=== PATIENT | female | born 1935 | race Caucasian/White ===

== ENCOUNTER 2016-05-07 08:03 | Inpatient (IN) | payer OTHER ==
[2016-04-16 15:14] VITALS: BMI 31.0
--- NOTE | 2016-04-16 15:52 | PAT Medication Instructions ---
Service Date Apr 16, 2016. Current Home Medication List Acetaminophen (Tylenol Arthritis Ext Rel), 1,300 MG PO BID Aspirin (Aspirin Ec), 81 MG PO QAM Calcium Carbonate-Vitamin D (Calcium 500 + D), 1 TAB PO QAM Chlorthalidone (Hygroton *), 12.5 MG PO QAM Cholecalciferol (Vitamin D 1000 Unit), 1,000 INTER.UNIT PO QAM Cholestyramine Powder (Questran Powder Light), 1 DOSE PO QAM Dicyclomine Hcl (Bentyl), 1 CAP PO DAILY PRN for cramping Fluticasone Propionate (Flonase Nasal Armstrong *), 2 SPRAYS FAVIAN DAILY Fluvastatin (Lescol), 40 MG PO QPM Metoprolol Tartrate (Lopressor), 25 MG PO BID Multivitamin (Multivitamin), 1 TAB PO QAM Potassium Ext Rel (Klor-Con), 20 MEQ PO TID Medication Instructions For Your Scheduled Surgery - Hold the following medications the morning of surgery: Multivitamin (Multivitamin), 1 TAB PO QAM Chlorthalidone (Hygroton *), 12.5 MG PO QAM Potassium Ext Rel (Klor-Con), 20 MEQ PO TID Calcium Carbonate-Vitamin D (Calcium 500 + D), 1 TAB PO QAM Cholecalciferol (Vitamin D 1000 Unit), 1,000 INTER.UNIT PO QAM Cholestyramine Powder (Questran Powder Light), 1 DOSE PO QAM Dicyclomine Hcl (Bentyl), 1 CAP PO DAILY PRN for cramping - Take the following medications the morning of surgery with a sip of water OTHERWISE NOTHING TO EAT OR DRINK AFTER MIDNIGHT: Acetaminophen (Tylenol Arthritis Ext Rel), 1,300 MG PO BID (may take if needed up to 4 hours prior to surgery) Aspirin (Aspirin Ec), 81 MG PO QAM Metoprolol Tartrate (Lopressor), 25 MG PO BID Fluticasone Propionate (Flonase Nasal Armstrong *), 2 SPRAYS FAVIAN DAILY - Take the following medications as scheduled the night before surgery: Acetaminophen (Tylenol Arthritis Ext Rel), 1,300 MG PO BID Fluvastatin (Lescol), 40 MG PO QPM Potassium Ext Rel (Klor-Con), 20 MEQ PO TID Dicyclomine Hcl (Bentyl), 1 CAP PO DAILY PRN for cramping Metoprolol Tartrate (Lopressor), 25 MG PO BID If you have any questions please call us at [phone] or [phone] or [phone]
[2016-04-16 16:18] LABS: BASO % 0.2 %; BASO ABS # 0.01 K/uL (0-0.2); COMPLETE YES; EOS % 2.4 %; HEMATOCRIT 36.2 % (37-47); IG% 0.2 %; LYMPH % 32.9 %; LYMPH ABS # 1.38 K/uL (1.2-3.4); MEAN CELL VOLUME 93.1 fL (80-100); MEAN CORPUSCULAR HEMOGLOBIN 31.1 pg (25-34); MEAN CORPUSCULAR HGB CONC 33.4 g/dl (32-36); MEAN PLATELET VOLUME 9.8 fL (7.4-10.4); MONO % 12.4 %; NEUT % 51.9 %; PLATELET COUNT 207 K/uL (130-400); RED BLOOD COUNT 3.89 M/uL (4.2-5.4)
[2016-04-16 16:39] LABS: BUN/CREATININE RATIO 33.9 (10-20); CALCIUM 9.8 mg/dl (8.5-10.1); CREATININE 0.72 mg/dl (0.60-1.20); POTASSIUM 3.7 mmol/L (3.5-5.1)
--- NOTE | 2016-04-29 10:42 | HISTORY & PHYSICAL EXAMINATION ---
DATE OF ADMISSION: 05/07/2016 CHIEF COMPLAINT: Right knee pain. HISTORY OF PRESENT ILLNESS: The patient is an 80-year-old female that presents with right knee pain. She states that the pain occurs constantly and has been getting progressively worse over time. She describes the pain as being dull, achy, consistent pain. She has had no relief with nonsteroidal anti-inflammatories, physical therapy, cortisone injections, and visco injection. She would like to proceed with a right total knee arthroplasty. PAST MEDICAL HISTORY: Significant for hypertension, hypercholesterolemia, osteoarthritis, GERD, hiatal hernia and diverticulitis. PAST SURGICAL HISTORY: Left knee TKA, partial thyroidectomy, hysterectomy, 2 back surgeries, and bladder surgery. SOCIAL HISTORY: She denies alcohol use. She denies smoking or tobacco use. She denies IV drug use. She lives in a 1-story house and she is retired. FAMILY HISTORY: Mother of a heart attack and dad had a stroke. MEDICATIONS: Potassium chloride, fluvastatin, metoprolol tartrate 50 mg, hygroton 25 mg, Questran 4 grams, aspirin 81 mg, Flonase as needed, calcium and vitamin D supplement, multivitamin, Bentyl 10 mg. ALLERGIES: ATORVASTATIN, OMEPRAZOLE, SULFA DRUGS. REVIEW OF SYSTEMS: She denies fevers, chills, headaches, weight loss, double vision, blurry vision, sore throat, hearing loss, tremors, dizziness, numbness or tingling, tired, thirsty, hot and cold intolerance, abdominal pain, nausea, vomiting, diarrhea, chest pain, swelling into the legs or feet, pain or burning with urination, frequency with urination, wheezing, cough, shortness of breath, depression, thoughts to harm herself or harm others, nervousness or anxiousness. She is positive for joint pain, stiffness and swelling of the right knee. OBJECTIVE: GENERAL APPEARANCE: The patient is an 80-year-old female that is sitting, in no acute distress, well dressed, well nourished. She is awake, alert and oriented x3. VITAL SIGNS: She is 4 feet 9 inches, 142 pounds. HEENT: Extraocular movements are intact. PERRLA. Mucosa is moist. No septal deviation. NECK: Supple with no lymphadenopathy, no JVD, no thyromegaly. HEART: She has a holosystolic murmur that is appreciated. LUNGS: Clear to auscultation. No wheezing or rhonchi. ABDOMEN: Soft, nontender, nondistended. Normal bowel sounds. No hepatosplenomegaly. EXTREMITIES: Paying particular attention to the right knee, she is able to extend her knee to 0 degrees actively. She is able to actively flex her knee to 90 degrees. She has medial joint line tenderness as well as lateral joint line tenderness. NEUROLOGIC: Cranial nerves II-XII are intact. Pulses are compared bilaterally and are equal. IMAGING: Four-view x-ray show [id number] of the medial compartment onto the right knee, osteophyte formation on the medial condyle and the medial tibial plateau. IMPRESSION: Severe end-stage osteoarthritis of the right knee. PLAN: The patient is scheduled for a right total knee arthroplasty. She has failed conservative therapies including cortisone injections, visco injections, nonsteroidal anti-inflammatories, and physical therapy. She has noted that the pain decreases her quality of life and makes it difficult to perform activities of daily living. She wishes to proceed with right total knee arthroplasty. Risks and benefits were discussed and included but not limited to blood clot, nerve damage, blood vessel damage, infection, failure to relieve all symptoms, revision surgeries, and anesthesia risks were all discussed with the patient and she wishes to proceed. All questions were answered to her satisfaction. She would like to go to [facility] as a part of her rehab after her surgical procedure. PRUDENCE
[~2016-05-07] VITALS: Ht 144.8 cm; Wt 64.9 kg
[2016-05-07] VITALS (10 sets, daily range): BP systolic 111–174; BP diastolic 60–82; PULSE 63–83; TEMP 36.2–36.8; O2SAT 92–99; Ht 144.8 cm; Wt 64.9 kg
[~2016-05-07 08:03] MED LIST: ACET1TAB84 PO; ACETAMINOPHEN 500 MG TAB PO SCH; ASPI81TA28 PO; BUPIVACAINE 0.5 % 5 MG/1 ML PF 10ML VIAL ONE; CALCTAB65 PO; CEFAZOLIN 1000MG/55 ML D5W 55 ML IV SCH; CHOL100027 PO; CHOL4POW6 PO; CeleBREX 200 MG CAP PO SCH; DEXAMETHASONE 4 MG TAB PO SCH; DICY10CA55 PO; FAMOTIDINE 20 MG TAB PO SCH; FENTANYL CITRATE INJ 50 MCG/1 ML 2 ML VIAL ONE; FLNIN NAE; FLUV1CAP7 PO; GABAPENTIN 300 MG CAP PO SCH; HYG25 PO; LACTATED RINGER'S 1000ML IV SCH; LISI5TAB PO; METO-551 PO; METOCLOPRAMIDE HCL 10 MG TAB PO SCH; MIDAZOLAM HCL 1 MG/ML 2ML VIAL ONE; MULT-506 PO; ONDANSETRON INJ 2 MG/ML 2 ML VIAL ONE; POTA20TA16 PO; PROPOFOL IV EMULSION 10 MG/ML 20 ML VIAL IV ONE; ROPIVACAINE 5MG/ML 30 ML 150 MG, BUPIVACAINE/EPINEPHR 0.5% MPF 30 ML, KETOROLAC TROMETH... INFIL SCH
--- NOTE | 2016-05-07 08:51 | History & Physical Bridge Note ---
H&P Re-Evaluation Bridge Note: I have examined the patient, reviewed the History & Physical and in the interval since the performance of the History & Physical I have noted the following changes of clinical significance: No changes noted
[2016-05-07] MEDS ORDERED: EpHEDrine SULFATE INJ 50 MG/ML AMP IV PRN (09:45)
[2016-05-07] MEDS ORDERED: FENTANYL CITRATE INJ 50 MCG/1 ML 2 ML VIAL IV PRN (09:45)
[2016-05-07] MEDS ORDERED: ATROPINE SULFATE 0.1 MG/ML 5ML SYR IV PRN (09:45)
[2016-05-07] MEDS ORDERED: ONDANSETRON INJ 2 MG/ML 2 ML VIAL IV PRN (09:45)
[2016-05-07] MEDS ORDERED: BACITRACIN 50000 UNIT VIAL ONE (09:46)
[2016-05-07] MEDS ORDERED: POVIDONE-IODINE OP SOLN 30 ML BTL ONE (09:46)
[2016-05-07] MEDS ORDERED: ORTHO JOINT ANESTHETIC ONE (09:46)
--- NOTE | 2016-05-07 12:11 | [facility] Post Operative Brief Note ---
Immediate Operative Summary Operative Date May 07, 2016. Pre-Operative Diagnosis Severe end-stage osteoarthritis of the right knee. Post-Operative Diagnosis Severe end-stage osteoarthritis of the right knee. Procedure(s) Performed Right Total Knee Arthroplasty Surgeon Dr. Sloan Polanco Steward/Stewardess Second Surgeon(s) Vkiash Gan PA-C Estimated Blood Loss 20 Findings above Specimens Specimen A. Right knee bone and tissue Drains 2 hemovac Anesthesia spinal Complication(s) None Disposition Recovery Room / PACU
--- NOTE | 2016-05-07 13:10 | OPERATIVE REPORT ---
DATE OF OPERATION: 05/07/2016 PREOPERATIVE DIAGNOSIS: Right knee degenerative joint disease. POSTOPERATIVE DIAGNOSIS: Same. PROCEDURE: Right total knee arthroplasty. SURGEON: Dr. Polanco. ENGINEERING TECHNOLOGIST: Vikash Gan PA-C who was necessary for assistance with the procedure with positioning, prepping, draping, retraction and closure. ANESTHESIA: Spinal with adductor canal block. SPECIMEN: Bone and tissue. IMPLANTS: Willis \T\ Nephew Journey version 2 femur 4, tibia 3, poly 10, patella 29 oval. DRAINS: Two Hemovac. ESTIMATED BLOOD LOSS: 20 mL. COMPLICATIONS: None. INDICATIONS: The patient is an 80-year-old female with longstanding degenerative joint disease, right knee. She has failed conservative measures including injection, physical therapy, anti-inflammatory medications. Failing conservative measures, she wished to proceed with right total knee arthroplasty. Risks, benefits and alternatives to surgery including but not limited to infection, DVT, pain, stiffness, need for urgent surgery, failure to relieve all symptoms, damage to blood vessels, damage to nerves, risks of anesthesia were discussed with the patient and she wished to proceed. OPERATION AND FINDINGS: PROCEDURE: The patient was identified, laterality was confirmed and marked. She received a preoperative antibiotic as well as a spinal anesthetic and an adductor canal block. She was placed in supine position. A well-padded tourniquet was placed on the leg and limb was prepped and draped in sterile manner with ChloraPrep. Limb was exsanguinated and tourniquet was inflated. I made a longitudinal incision anterior aspect of the knee, sharply incised through the skin utilizing Bovie electrocautery to achieve hemostasis. We also utilized the aqua mask. I made a medial parapatellar arthrotomy, mobilized the patella laterally. She had fairly significant patellar wear with chronic lateral subluxation of the patella with grooving and significant thinning of the patella. I excised the anterior horns of the medial and lateral meniscus as well as the patellar fat pad and then pinned into place my distal femoral cutting guide, made my distal femoral resection and pinned in place a size 4 distal femoral cutting guide. I made my anterior, posterior and chamfer cuts. I then removed the remaining portion of the meniscus as well as cruciates, pinned in place the tibial cutting guide which was patient matched, made my tibial resection. We preoperatively templated for a size 2 but we had better sizing with a size 3 tibia. We positioned this into place, cut for the post. I then removed the posterior osteophytes off the femur. I placed the trial femur into place and cut for the trochlear component and sequentially trialed up to a size 10 poly. We had good soft tissue balancing and good range of motion with a 10 poly. I then prepared the patella with a sagittal saw, sized and drilled for a size 29 patella. We had good tracking of the patella and no lateral release was required. All trial components were removed. Wound was thoroughly irrigated. Deep tissues were anesthetized with Orthomix solution and then with Simplex HV with gent cement, cemented my definitive components. This was a Willis \T\ Nephew Journey version 2 femur 4, tibia 3, poly 10, patella 29 oval. A deep drain was placed, a Betadine soak was performed. The arthrotomy was closed with interrupted #1 Vicryl sutures, subcutaneous tissue with interrupted 2-0 Vicryl suture and skin with nida. Sterile dressing was applied. All needle and sponge counts were correct at the end of procedure. The patient was transferred to the PACU in stable condition without apparent complication. I attest to the content of the Intraoperative Record and any orders documented therein. Any exceptions are noted below. PRUDENCE
[2016-05-07] MEDS ORDERED: BISACODYL 10 MG SUPP PR PRN (13:15)
[2016-05-07] MEDS ORDERED: SOD PHOSPHATE/SOD BIPHOSPHATE ENEMA 132 ML BTL PR PRN (13:15)
[2016-05-07] MEDS ORDERED: DICYCLOMINE HCL 10 MG CAP PO PRN (13:15)
[2016-05-07] MEDS ORDERED: ZOLPIDEM TARTRATE 5 MG TAB PO PRN (13:15)
[2016-05-07] MEDS ORDERED: ALUMINUM/MAGNESIUM/SIMETH (MAALOX MAX) 30 ML UDC PO PRN (13:15)
[2016-05-07] MEDS ORDERED: KETOROLAC TROMETHAMINE 15 MG/ML VIAL IV. PRN (13:15)
[2016-05-07] MEDS ORDERED: MAGNESIUM HYDROXIDE SUSP 30 ML UDC PO PRN (13:15)
--- NOTE | 2016-05-07 13:51 | DIAGNOSTIC IMAGING REPORT ---
RIGHT KNEE 1 OR 2 VIEWS ROUTINE CLINICAL HISTORY: AP/LATERAL IN PACU RIGHT KNEE Right postoperative evaluation COMPARISON: None. DISCUSSION: Total joint replacement with the prosthetic in good position. Surgical drains in position. Expected soft tissue postoperative change. There is no evidence for soft tissue swelling. IMPRESSION: Anatomic alignment status post total joint replacement Electronically signed by: Prem Billingsley M.D. 05/07/2016 1:49 PM Dictated Date/Time: 05/07/2016 1:49 PM
--- NOTE | 2016-05-07 15:55 | Anesthesiology Progress Note ---
Anesthesia Post Op Note Date & Time May 07, 2016 at 15:55 Vital Signs Pain Intensity: 0.0 Vital Signs Past 12 Hours Date Time Temp Pulse Resp B/P Pulse Ox O2 Delivery O2 Flow Rate FiO2 05/07/16 14:35 36.2 68 16 148/70 99 Nasal Cannula 2.0 05/07/16 14:26 96 Nasal Cannula 2.0 05/07/16 14:20 96 Nasal Cannula 2.0 05/07/16 14:05 36.3 77 16 161/71 96 Nasal Cannula 2.0 05/07/16 13:49 162/66 05/07/16 13:47 70 15 05/07/16 13:47 70 15 94 05/07/16 13:44 165/69 05/07/16 13:42 72 13 05/07/16 13:42 72 13 99 05/07/16 13:39 141/92 05/07/16 13:37 71 13 05/07/16 13:37 70 13 97 05/07/16 13:34 160/75 05/07/16 13:32 72 15 99 05/07/16 13:32 71 15 05/07/16 13:31 37 05/07/16 13:30 70 13 99 05/07/16 13:30 71 13 05/07/16 13:29 159/69 05/07/16 13:25 70 13 100 05/07/16 13:25 71 13 05/07/16 13:24 152/65 05/07/16 13:20 69 16 163/62 99 05/07/16 13:20 70 16 05/07/16 13:05 37.1 75 16 180/71 100 Mask 10 05/07/16 08:46 36.8 67 18 174/79 98 Room Air Notes Mental Status: alert / awake / arousable, participated in evaluation Pt Amnestic to Procedure: Yes Nausea / Vomiting: adequately controlled Pain: adequately controlled Airway Patency, RR, SpO2: stable & adequate BP & HR: stable & adequate Hydration State: stable & adequate Neuraxial Anesthesia: was administered, sensory block is resolving Anesthetic Complications: no major complications apparent
[2016-05-07] MEDS: D5W AND 1/2NSS + 20MEQ KCL 1,000 ML IV SCH (16:28)
[2016-05-07] MEDS: CEFAZOLIN IV 1,000 MG in DEXTROSE 5% 50ML 50 ML IV SCH (18:00)
[2016-05-07] MEDS: FERROUS GLUCONATE 324 MG TAB PO SCH (18:00)
[2016-05-07] MEDS: ONDANSETRON INJ 2 MG/ML 2 ML VIAL IV PRN (19:29)
[2016-05-07] MEDS: FLUVASTATIN SODIUM 20 MG CAP PO SCH (20:43)
[2016-05-07] MEDS: SENNA 8.6 MG TAB PO SCH (20:43)
[2016-05-07] MEDS: POTASSIUM CHLORIDE 20 MEQ TABCR PO SCH (20:43)
[2016-05-07] MEDS: METOPROLOL TARTRATE 50 MG TAB PO SCH (20:43)
[2016-05-07] MEDS: OXYCODONE HCL 10 MG TABCR (OXYCONTIN) PO SCH (20:44)
[2016-05-07] MEDS: ASPIRIN 81 MG ECTAB PO SCH (20:44)
[2016-05-07] MEDS: DOCUSATE SODIUM 100 MG CAP PO SCH (20:44)
[2016-05-08] VITALS (9 sets, daily range): BP systolic 105–141; BP diastolic 52–80; PULSE 68–89; TEMP 36.8–37.1; O2SAT 92–94
[2016-05-08] MEDS: CEFAZOLIN IV 1,000 MG in DEXTROSE 5% 50ML 50 ML IV SCH (02:20)
[2016-05-08] MEDS: D5W AND 1/2NSS + 20MEQ KCL 1,000 ML IV SCH ×2 (02:20→12:18)
[2016-05-08 06:40] LABS: HEMATOCRIT 25.6 % (37-47); MEAN CELL VOLUME 93.8 fL (80-100); MEAN CORPUSCULAR HEMOGLOBIN 32.2 pg (25-34); MEAN CORPUSCULAR HGB CONC 34.4 g/dl (32-36); MEAN PLATELET VOLUME 9.6 fL (7.4-10.4); PLATELET COUNT 204 K/uL (130-400); RED BLOOD COUNT 2.73 M/uL (4.2-5.4); WHITE BLOOD COUNT 14.76 K/uL (4.8-10.8)
[2016-05-08 06:59] LABS: INR 1.1 (0.9-1.1); PROTHROMBIN TIME (PATIENT) 11.4 SECONDS (9.0-12.0)
[2016-05-08 07:04] LABS: BUN/CREATININE RATIO 28.2 (10-20); CALCIUM 7.7 mg/dl (8.5-10.1); CREATININE 0.87 mg/dl (0.60-1.20); POTASSIUM 3.7 mmol/L (3.5-5.1)
--- NOTE | 2016-05-08 08:40 | Orthopedic Progress Note ---
Orthopedic Progress Note Date of Service May 08, 2016. Subjective Post OP Day: 1 (Right TKA) Reports: feeling well, pain controlled w PO medications, Denies: SOB, calf pain , chest pain, complaints, light headedness, nausea / vomiting Objective calves soft nontender, N/V intact, capillary refill less than 2 sec., dressing C /D/I, A&O x3, toes mobile, hemovac drainage (350cc/8 hours) Date Time Temp Pulse Resp B/P Pulse Ox O2 Delivery O2 Flow Rate FiO2 05/08/16 08:08 36.9 68 18 140/70 93 Room Air 05/08/16 02:54 36.8 73 18 118/62 92 Room Air 05/08/16 00:00 Room Air 05/07/16 23:09 36.4 63 18 113/65 92 Room Air 05/07/16 20:37 83 116/68 05/07/16 19:20 36.6 75 18 111/60 94 Room Air 05/07/16 17:05 36.7 83 18 143/82 99 Nasal Cannula 2.0 05/07/16 16:05 36.8 68 18 149/72 98 Nasal Cannula 2.0 05/07/16 15:30 Nasal Cannula 2.0 05/07/16 15:05 36.3 70 18 149/69 97 Nasal Cannula 2.0 05/07/16 14:35 36.2 68 16 148/70 99 Nasal Cannula 2.0 05/07/16 14:26 96 Nasal Cannula 2.0 05/07/16 14:20 96 Nasal Cannula 2.0 05/07/16 14:05 36.3 77 16 161/71 96 Nasal Cannula 2.0 05/07/16 13:49 162/66 05/07/16 13:47 70 15 05/07/16 13:47 70 15 94 05/07/16 13:44 165/69 05/07/16 13:42 72 13 05/07/16 13:42 72 13 99 05/07/16 13:39 141/92 05/07/16 13:37 71 13 05/07/16 13:37 70 13 97 05/07/16 13:34 160/75 05/07/16 13:32 72 15 99 05/07/16 13:32 71 15 05/07/16 13:31 37 05/07/16 13:30 70 13 99 05/07/16 13:30 71 13 05/07/16 13:29 159/69 05/07/16 13:25 70 13 100 05/07/16 13:25 71 13 05/07/16 13:24 152/65 05/07/16 13:20 69 16 163/62 99 05/07/16 13:20 70 16 05/07/16 13:05 37.1 75 16 180/71 100 Mask 10 05/07/16 08:46 36.8 67 18 174/79 98 Room Air Laboratory Results 24 Hours: Test 05/08/16 06:05 05/08/16 06:10 Prothromb Time International Ratio 1.1 Prothrombin Time 11.4 SECONDS Hematocrit 25.6 % Hemoglobin 8.8 g/dL Assessment & Plan Assessment: POD #1 s/p Right TKA -PT/OT -HUSAM/SCD/ASA -went to [facility] [place] after her left tka Significant for hypertension, hypercholesterolemia, GERD, hiatal hernia and diverticulitis.
[2016-05-08] MEDS: FERROUS GLUCONATE 324 MG TAB PO SCH ×3 (08:42→18:00)
[2016-05-08] MEDS: FLUTICASONE PROPIONATE NA SPR 16 GM BTL NAE SCH (08:47)
[2016-05-08] MEDS: DOCUSATE SODIUM 100 MG CAP PO SCH ×2 (08:53→21:13)
[2016-05-08] MEDS: ASPIRIN 81 MG ECTAB PO SCH ×2 (08:53→21:13)
[2016-05-08] MEDS: CHLORTHALIDONE 25 MG TAB PO SCH (08:54)
[2016-05-08] MEDS: POTASSIUM CHLORIDE 20 MEQ TABCR PO SCH ×3 (08:55→21:13)
[2016-05-08] MEDS: METOPROLOL TARTRATE 50 MG TAB PO SCH ×2 (08:56→21:00)
[2016-05-08] MEDS: OXYCODONE HCL 10 MG TABCR (OXYCONTIN) PO SCH ×2 (08:58→21:13)
[2016-05-08] MEDS: CHOLECALCIFEROL 1000 INTER.UNIT TAB PO SCH (08:59)
[2016-05-08] MEDS: LISINOPRIL 5 MG TAB PO SCH (08:59)
[2016-05-08] MEDS: MULTIVITAMIN TAB PO SCH (08:59)
[2016-05-08] MEDS: LACTASE 3000 UNIT TAB PO SCH (09:00)
[2016-05-08] MEDS: CALCIUM 600MG + VIT D 400 IU TAB PO SCH (11:04)
[2016-05-08] MEDS: FLUVASTATIN SODIUM 20 MG CAP PO SCH (21:17)
[2016-05-08] MEDS: SENNA 8.6 MG TAB PO SCH (21:17)
[2016-05-09] VITALS (12 sets, daily range): BP systolic 122–153; BP diastolic 63–84; PULSE 73–96; TEMP 36.8–37.9; O2SAT 91–95
[2016-05-09] MEDS: OXYCODONE HCL IR 5 MG TAB (IMMEDIATE RELEASE) PO PRN ×3 (04:40→17:14)
[2016-05-09 05:30] LABS: HEMATOCRIT 21.8 % (37-47)
--- NOTE | 2016-05-09 07:04 | Orthopedic Progress Note ---
Orthopedic Progress Note Date of Service May 09, 2016. Subjective Post OP Day: 2 Reports: feeling well, light headedness, pain controlled w PO medications, Denies: calf pain, chest pain, nausea / vomiting Additional Notes: patient states she experienced LH and mild dizziness while up last evening. denies CP or SOB Objective calves soft nontender, N/V intact, capillary refill less than 2 sec., dressing C /D/I (silverlon intact), A&O x3, toes mobile Date Time Temp Pulse Resp B/P Pulse Ox O2 Delivery O2 Flow Rate FiO2 05/08/16 23:32 36.9 89 18 134/74 94 Room Air 05/08/16 23:30 Room Air 05/08/16 21:04 84 107/61 05/08/16 15:47 37.1 80 16 141/80 94 Room Air 05/08/16 15:45 94 Room Air 05/08/16 12:09 37.0 87 16 105/64 92 Room Air 05/08/16 10:33 93 Room Air 05/08/16 10:18 72 16 130/52 94 Room Air 05/08/16 08:08 36.9 68 18 140/70 93 Room Air 05/08/16 07:20 Room Air Laboratory Results 24 Hours: Test 05/09/16 05:10 Hematocrit 21.8 % Hemoglobin 7.4 g/dL Assessment & Plan Assessment: POD #2 s/p Right TKA -PT/OT -HUSAM/SCD/ASA -will discuss with SUSANNA kaur when medically stable Acute blood loss anemia- experiencing LH this morning and last evening. will order 1 unit PRBC, recheck H/H this evening, hold on transfer/discharge. will consult medicine Significant for hypertension, hypercholesterolemia, GERD, hiatal hernia and diverticulitis. Discharge Planning Discharge Planning: uncertain DVT Prophylaxis: TEDs, SCDs, ASA Therapy: Physical Therapy
[2016-05-09] MEDS: LACTASE 3000 UNIT TAB PO SCH (08:17)
[2016-05-09] MEDS: CALCIUM 600MG + VIT D 400 IU TAB PO SCH (08:18)
[2016-05-09] MEDS: FERROUS GLUCONATE 324 MG TAB PO SCH ×3 (08:18→18:33)
[2016-05-09] MEDS: FLUTICASONE PROPIONATE NA SPR 16 GM BTL NAE SCH (08:18)
[2016-05-09] MEDS: CHOLECALCIFEROL 1000 INTER.UNIT TAB PO SCH (08:20)
[2016-05-09] MEDS: POTASSIUM CHLORIDE 20 MEQ TABCR PO SCH ×3 (08:20→21:12)
[2016-05-09] MEDS: ASPIRIN 81 MG ECTAB PO SCH ×2 (09:07→21:10)
[2016-05-09] MEDS: MULTIVITAMIN TAB PO SCH (09:07)
[2016-05-09] MEDS: DOCUSATE SODIUM 100 MG CAP PO SCH ×2 (09:07→21:10)
[2016-05-09] MEDS: METOPROLOL TARTRATE 50 MG TAB PO SCH ×2 (09:09→21:15)
--- NOTE | 2016-05-09 09:09 | DIAGNOSTIC IMAGING REPORT ---
CHEST 2 VIEWS ROUTINE HISTORY: Shortness of breath COMPARISON: Chest 12/11/2015. FINDINGS: Stable linear scarlike density within the right midlung zone. The heart remains top normal in size. No pneumothorax. Trace bilateral pleural effusions. No evidence for pulmonary edema. No new focal lung consolidations to suggest pneumonia. Posterior fusion within the lumbar spine. IMPRESSION: 1. Stable mild cardiomegaly. 2. Trace bilateral pleural effusions. Electronically signed by: Lv Roberts M.D. 05/09/2016 9:07 AM Dictated Date/Time: 05/09/2016 9:06 AM
[2016-05-09] MEDS: CHLORTHALIDONE 25 MG TAB PO SCH (09:10)
[2016-05-09] MEDS: OXYCODONE HCL 10 MG TABCR (OXYCONTIN) PO SCH ×2 (09:12→21:10)
[2016-05-09] MEDS: LISINOPRIL 5 MG TAB PO SCH (09:12)
--- NOTE | 2016-05-09 10:37 | Medical Consult ---
Consultation Date of Consultation: May 09, 2016. Attending Physician: Sloan Polanco M.D. Reason for Consultation: Lightheadedness History of Present Illness Patient is an 80 y/o female with a h/o HTN and other medical problems, who is status post right TKA on 05/07/16. Last night, patient had some confusion, which she remembers feeling confused, and lightheadedness. Patient felt lightheaded again this morning. She only notes lightheadedness when sitting up or standing. The lightheadedness is accompanied by nausea and SOB. Patient's hemoglobin this morning was noted to be 7.4. Vitals were notable for hypotension last night. Patient was ordered transfusion with 1unit PRBC's. Patient denies any chest pain , cough, abdominal pain, hematuria, blood in stool, vomiting. She does note a h/ o hemorrhoids and does experience bright red blood with wiping. She is passing gas but has not had a BM yet. CXR this morning showed trace pleural effusions but was otherwise negative. Medicine was consulted for lightheadedness. Past Medical/Surgical History Medical Problems: (1) Post-operative pain Status: Acute Family History Patient reports no known family medical history. Social History Smoking Status: Never Smoker Drug Use: none Marital Status: Occupation Status: retired Allergies Coded Allergies: Omeprazole (Verified Allergy, Mild, "COLITIS", 05/07/16) Sulfa Antibiotics (Verified Allergy, Mild, "SULFA DRUGS": RASH & SORE MOUTH, 05/07/16) Atorvastatin (Verified Adverse Reaction, Mild, DIZZINESS, 05/07/16) Home Medications Reported Home Medications Medications Dose Route/Sig Max Daily Dose Days Date Category Prinivil (Lisinopril) 5 Mg Tab 5 Mg PO DAILY 04/22/16 Reported Tylenol Arthritis Ext Rel (Acetaminophen) 650 Mg Cplt 1,300 Mg PO BID 04/16/16 Reported Aspirin Ec (Aspirin) 81 Mg Tab 81 Mg PO QAM 04/16/16 Reported Bentyl (Dicyclomine Hcl) 10 Mg Cap 1 Cap PO DAILY PRN 30 11/21/15 Reported Calcium 500 + D (Calcium Carbonate-Vitamin D) 1 Tab Tab 1 Tab PO QAM 10/27/15 Reported Questran Powder Light (Cholestyramine Resin) Powd 1 Dose PO QAM 10/27/15 Reported Vitamin D 1000 Unit (Cholecalciferol) 1,000 Unit Cap 1,000 Inter.unit PO QAM 02/24/12 Reported Lopressor (Metoprolol Tartrate) 50 Mg Tab 1 Tab PO BID 02/24/12 Reported Multivitamin (Multivitamins) Tab 1 Tab PO QAM 05/21/08 Reported Flonase Nasal [place] * (Fluticasone Propionate) Inha 2 Sprays FAVIAN DAILY 05/21/08 Reported Lescol (Fluvastatin Sodium) 40 Mg Cap 40 Mg PO QPM 05/21/08 Reported [place] * (Chlorthalidone) 25 Mg Tab 12.5 Mg PO QAM 05/21/08 Reported Klor-Con (Potassium Chloride) 20 Meq Tabcr 20 Meq PO TID 05/21/08 Reported Current Inpatient Medications Current Inpatient Medications Medications (Trade) Dose Ordered Sig/Atilio Route Start Time Stop Time Status Last Admin Dose Admin Oxycodone HCl (Roxicodone Immediate Rel Tab) 1 TABLET FOR PAIN RATING... Q4H PRN PO 05/07/16 13:15 05/21/16 13:14 05/09/16 09:13 5 MG Oxycodone HCl (Oxycontin Tab) 10 mg Q12 PO 05/07/16 21:00 05/21/16 20:59 05/09/16 09:12 10 MG Magnesium Hydroxide (Milk Of Magnesia Susp) 30 ml Q6H PRN PO 05/07/16 13:15 06/06/16 13:14 Bisacodyl (Dulcolax Supp) 10 mg DAILY PRN [place] 05/07/16 13:15 06/06/16 13:14 Sodium Biphosphate/ Sodium Phosphate (Fleet Enema) 132 ml DAILY PRN MA 05/07/16 13:15 06/06/16 13:14 Senna (Senokot Tab) 17.2 mg HS PO 05/07/16 21:00 06/06/16 20:59 05/08/16 21:17 17.2 MG Docusate Sodium (coLACE CAP) 100 mg BID PO 05/07/16 21:00 06/06/16 20:59 05/09/16 09:07 100 MG Diphenhydramine HCl (Benadryl Cap) 25 mg Q8H PRN PO 05/07/16 13:15 06/06/16 13:14 Zolpidem Tartrate (Ambien Tab) 5 mg HSZ PRN PO 05/07/16 13:15 06/06/16 13:14 Multivitamins (Multivitamin Tab) 1 tab QAM PO 05/08/16 09:00 06/07/16 08:59 05/09/16 09:07 1 TAB Ondansetron HCl (Zofran Inj) 4 mg Q6H PRN IV 05/07/16 13:15 06/06/16 13:14 05/07/16 19:29 4 MG Ferrous Gluconate (Ferrous Gluconate Tab) 324 mg TIDM PO 05/07/16 17:45 06/06/16 17:59 05/09/16 08:18 324 MG Aspirin (Ecotrin Tab) 81 mg BID PO 05/07/16 21:00 06/06/16 20:59 05/09/16 09:07 81 MG Chlorthalidone (Hygroton Tab) 12.5 mg QAM PO 05/08/16 09:00 06/07/16 08:59 05/09/16 09:10 12.5 MG Cholecalciferol (Vitamin D Tab) 1,000 inter.unit QAM PO 05/08/16 09:00 06/07/16 08:59 05/09/16 08:20 1,000 INTER.UNIT Dicyclomine HCl (Bentyl Cap) 10 mg DAILY PRN PO 05/07/16 13:15 06/06/16 13:14 Fluticasone Propionate (Flonase Nasal [place]) 2 sprays DAILY FAVIAN 05/08/16 09:00 06/07/16 08:59 05/09/16 08:18 2 SPRAYS Fluvastatin Sodium (Lescol Cap) 40 mg QPM PO 05/07/16 21:00 06/06/16 20:59 05/08/16 21:17 40 MG Lisinopril (Zestril Tab) 5 mg DAILY PO 05/08/16 09:00 06/07/16 08:59 05/09/16 09:12 5 MG Metoprolol Tartrate (Lopressor Tab) 50 mg BID PO 05/07/16 21:00 06/06/16 20:59 05/09/16 09:09 50 MG Potassium Chloride (Klor-Con Tab) 20 meq TID PO 05/07/16 21:00 06/06/16 20:59 05/09/16 08:20 20 MEQ Calcium/Vitamin D (Caltrate Plus Tab) 1 tab QAM PO 05/08/16 09:00 06/07/16 08:59 05/09/16 08:18 1 TAB Al Hydrox/Mg Hydrox/Simethicone (Maalox Max Susp) 15 ml Q6H PRN PO 05/08/16 08:30 06/07/16 08:29 Lactase (Lactaid Tab) 3,000 units QDB PO 05/08/16 09:00 06/07/16 08:59 05/09/16 08:17 3,000 UNITS Review of Systems Constitutional- denies fevers or chills Eyes- denies blurry vision, double vision or loss of vision ENT- denies sore throat or congestion Pulmonary- +SOB associated with episodes of lightheadedness; denies cough Cardiac- denies chest pain or palpitations GI- denies abdominal pain; passing flatus; +nausea associated with episodes of lightheadedness - denies dysuria or hematuria Musculoskeletal- +right knee pain Dermatologic- denies rash; +bruising to right knee Neuro- +chronic numbness of hands and feet (unchanged); denies focal weakness Psych- denies depression or anxiety . Physical Exam Date Time Temp Pulse Resp B/P Pulse Ox O2 Delivery O2 Flow Rate FiO2 05/09/16 10:15 37.9 80 18 151/84 94 05/09/16 09:45 37.1 86 18 141/63 95 05/09/16 09:30 36.8 88 18 134/74 93 05/09/16 09:18 36.8 95 20 122/71 05/09/16 09:08 95 122/71 05/09/16 07:08 37.5 96 16 133/76 95 Room Air 05/08/16 23:32 36.9 89 18 134/74 94 Room Air 05/08/16 23:30 Room Air 05/08/16 21:04 84 107/61 05/08/16 15:47 37.1 80 16 141/80 94 Room Air 05/08/16 15:45 94 Room Air 05/08/16 12:09 37.0 87 16 105/64 92 Room Air 05/08/16 10:33 93 Room Air General- awake; alert; NAD Eyes- EOMI; no scleral icterus Neck- no stridor; trachea midline Lungs- CTA bilaterally; no wheezes/crackles Heart- RRR; no m/r/g Abdomen- soft; NTND; nBS Back- no gross abnormalities Extremities- +bruising of right knee; surgical bandage with anginous drainage; HUSAM's and SCD's in place Neuro- no gross focal deficits Skin- no appreciable rash . Laboratory Results Last 24 Hours Test 05/09/16 05:10 Hemoglobin 7.4 g/dL Hematocrit 21.8 % Assessment & Plan Patient is an 80 y/o female with a h/o HTN who is status post right TKA on . Medicine is consulted for lightheadedness. Lightheadedness - likely related to acute blood loss anemia from surgery - Hgb this morning 7.4 - agree with transfusion 1 unit PRBCs - monitor Hgb - CXR reviewed and unremarkable - continue home antihypertensives for now (patient likely hypotensive last night 2/2 anemia) Acute blood loss anemia - post surgical from right TKA - transfuse 1 unit PRBC's - monitor Hgb - continue iron supplementation HTN - continue metoprolol, chlorthalidone and lisinopril for now Status post right TKA - management per Ortho DVT prophylaxis - HUSAM's and SCD's - defer aspirin to Ortho Thank you for this consultation. We will follow the patient with you during their hospital stay. You can reach a member of the [facility] Hospitalist Team 04/10 via pager @ .
[2016-05-09] MEDS: ACETAMINOPHEN 325 MG TAB PO PRN (10:47)
[2016-05-09] MEDS: ALUMINUM/MAGNESIUM/SIMETH (MAALOX MAX) 30 ML UDC PO PRN (14:08)
[2016-05-09 17:21] LABS: HEMATOCRIT 24.9 % (37-47)
[2016-05-09] MEDS: FLUVASTATIN SODIUM 20 MG CAP PO SCH (21:12)
[2016-05-09] MEDS: SENNA 8.6 MG TAB PO SCH (21:15)
[2016-05-10] VITALS (7 sets, daily range): BP systolic 110–147; BP diastolic 60–77; PULSE 72–89; TEMP 36.5–37.2; O2SAT 93–96
[2016-05-10] MEDS: ONDANSETRON INJ 2 MG/ML 2 ML VIAL IV PRN
[2016-05-10 06:32] LABS: BUN/CREATININE RATIO 22.6 (10-20); CALCIUM 7.9 mg/dl (8.5-10.1); CREATININE 0.66 mg/dl (0.60-1.20); POTASSIUM 3.6 mmol/L (3.5-5.1)
[2016-05-10 06:44] LABS: HEMATOCRIT 25.2 % (37-47); MEAN CELL VOLUME 93.7 fL (80-100); MEAN CORPUSCULAR HGB CONC 34.1 g/dl (32-36); MEAN PLATELET VOLUME 10.3 fL (7.4-10.4); PLATELET COUNT 162 K/uL (130-400); RED BLOOD COUNT 2.69 M/uL (4.2-5.4); WHITE BLOOD COUNT 8.83 K/uL (4.8-10.8)
--- NOTE | 2016-05-10 07:18 | Anesthesiology Progress Note ---
Anesthesia Post Op Note Date & Time May 10, 2016 at 07:17 Vital Signs Vital Signs Past 12 Hours Date Time Temp Pulse Resp B/P Pulse Ox O2 Delivery O2 Flow Rate FiO2 05/10/16 06:29 36.8 89 16 147/73 94 Room Air 05/10/16 00:00 Room Air 05/09/16 23:10 37.3 86 16 146/76 93 Room Air 05/09/16 21:17 93 153/71 Notes Mental Status: alert / awake / arousable, participated in evaluation Pt Amnestic to Procedure: Yes Nausea / Vomiting: adequately controlled Pain: adequately controlled Airway Patency, RR, SpO2: stable & adequate BP & HR: stable & adequate Hydration State: stable & adequate Neuraxial Anesthesia: sensory block resolved Anesthetic Complications: no major complications apparent
[2016-05-10] MEDS: OXYCODONE HCL IR 5 MG TAB (IMMEDIATE RELEASE) PO PRN (07:23)
--- NOTE | 2016-05-10 07:37 | Orthopedic Progress Note ---
Orthopedic Progress Note Date of Service May 10, 2016. Subjective Post OP Day: 3 Reports: feeling well, light headedness, pain controlled w PO medications, Denies: SOB, chest pain Additional Notes: Patient notes this morning while standing in the bathroom that she still was light headed and feeling foggy. Objective calves soft nontender, N/V intact, dressing C/D/I (small amount of leakage from the distal portion of the bandage), A&O x3, toes mobile Date Time Temp Pulse Resp B/P Pulse Ox O2 Delivery O2 Flow Rate FiO2 05/10/16 07:19 Room Air 05/10/16 06:29 36.8 89 16 147/73 94 Room Air 05/10/16 00:00 Room Air 05/09/16 23:10 37.3 86 16 146/76 93 Room Air 05/09/16 21:17 93 153/71 05/09/16 15:45 Room Air 05/09/16 15:16 37.0 83 18 126/69 95 Room Air 05/09/16 11:45 37.0 82 18 135/79 91 05/09/16 11:13 37.3 75 18 148/79 93 05/09/16 10:45 37.6 73 18 152/83 93 05/09/16 10:15 37.9 80 18 151/84 94 05/09/16 09:45 37.1 86 18 141/63 95 05/09/16 09:30 36.8 88 18 134/74 93 05/09/16 09:18 36.8 95 20 122/71 05/09/16 09:08 95 122/71 05/09/16 07:30 Room Air Laboratory Results 24 Hours: Test 05/09/16 17:03 05/10/16 05:20 Hematocrit 24.9 % 25.2 % Hemoglobin 8.7 g/dL 8.6 g/dL Assessment & Plan Assessment: POD #3 s/p Right TKA -PT/OT -HUSAM/SCD/ASA Acute blood loss anemia - Patient's blood work came back with H/H of 25.2 and 8.6 this morning. Will wait for medicine this morning to possibly transfuse another unit of PRBC Significant for hypertension, hypercholesterolemia, GERD, hiatal hernia and diverticulitis. Inhouse Planning Pain Management: Oxycontin, PO Tylenol, Oxy IR DVT Prophylaxis: TEDs, SCDs, ASA Discharge Planning Discharge Planning: intermediate facility DVT Prophylaxis: TEDs, SCDs, ASA Therapy: Physical Therapy
[2016-05-10] MEDS: FERROUS GLUCONATE 324 MG TAB PO SCH ×3 (07:59→18:22)
[2016-05-10] MEDS: LACTASE 3000 UNIT TAB PO SCH (08:00)
[2016-05-10] MEDS: CALCIUM 600MG + VIT D 400 IU TAB PO SCH (08:01)
[2016-05-10] MEDS: FLUTICASONE PROPIONATE NA SPR 16 GM BTL NAE SCH (08:01)
[2016-05-10] MEDS: DOCUSATE SODIUM 100 MG CAP PO SCH ×2 (08:02→20:36)
[2016-05-10] MEDS: ASPIRIN 81 MG ECTAB PO SCH ×2 (08:03→20:33)
[2016-05-10] MEDS: CHLORTHALIDONE 25 MG TAB PO SCH (08:05)
[2016-05-10] MEDS: POTASSIUM CHLORIDE 20 MEQ TABCR PO SCH ×3 (08:06→20:34)
[2016-05-10] MEDS: MULTIVITAMIN TAB PO SCH (08:07)
[2016-05-10] MEDS: METOPROLOL TARTRATE 50 MG TAB PO SCH ×2 (08:07→20:34)
[2016-05-10] MEDS: OXYCODONE HCL 10 MG TABCR (OXYCONTIN) PO SCH ×2 (08:08→20:33)
[2016-05-10] MEDS: CHOLECALCIFEROL 1000 INTER.UNIT TAB PO SCH (08:09)
[2016-05-10] MEDS: LISINOPRIL 5 MG TAB PO SCH (08:10)
[2016-05-10] MEDS: ACETAMINOPHEN 325 MG TAB PO PRN ×2 (10:27→23:48)
[2016-05-10] MEDS: ALUMINUM/MAGNESIUM/SIMETH (MAALOX MAX) 30 ML UDC PO PRN (10:28)
[2016-05-10] MEDS ORDERED: OXYSR10 PO (11:02)
[2016-05-10] MEDS ORDERED: RXC5 PO (11:02)
[2016-05-10] MEDS ORDERED: ASPI81TA28 PO (11:02)
--- NOTE | 2016-05-10 11:59 | Discharge Instructions ---
Discharge Instructions Admission Reason for Admission: Right Knee Osteoarthritis Discharge Discharge Diagnosis / Problem: sp right TKA Discharge Goals Goal(s): Decrease discomfort, Improve function, Increase independence Activity Recommendations Activity Level: Assistance Required Therapies: Physical Therapy, Occupational Therapy Weightbearing Status: Right weightbearing (as tolerated) ACTIVITY RECOMMENDATIONS: SELF CARE INSTRUCTIONS AFTER TOTAL KNEE REPLACEMENT A. You may need to continue a physical therapy program after discharge from the hospital. There are several options available to you. Your doctor will assist you in selecting the best one for you. 1. An out-patient facility 2 to 3 times a week for therapy or home therapy. 2. Continue working on all exercises taught to you in the hospital. Your goals should be to increase bending of your knee to 90 degrees and beyond and to fully straighten your knee. B. You may progress at your own pace from walking with a walker or crutches to a cane; then to no assistive devices. C. Make walking a part of your daily routine. Be up as much as comfortable with rest periods throughout the day. Rest with leg elevation is very important. Use the ice wrap frequently for the first 3-4 weeks. D. There are no restrictions on activities. You may ride in a car, shop, participate in fountain worker and all social activities. E. Wear the long elastic stockings (HUSAM hose) 20 hours a day for 2 weeks after surgery. They can be removed several times a day for laundering and for a bath. F. You may shower, no tub baths until cleared by your doctor. SPECIAL CARE INSTRUCTIONS: VERY IMPORTANT TO READ AND REVIEW A. There are a few signs you need to watch for after you are home. Call [facility] if you notice any of the followin. Increased severe knee pain. Some pain is expected especially when you exercise. 2. Increased swelling in your leg or knee; pain or swelling of the calf muscle in either lower leg. 3. Any fluid drainage from the incision. 4. Shortness of breath or chest pain. B. Please call [facility] at if you have any concerns or questions about your operation or recovery. The doctor or his nurse will return your call promptly. C. You must take antibiotics before dental work, bladder, bowel or other surgery. Your doctor will provide you with a permanent care to carry describing this precaution. IMPORTANT: * REMEMBER TO TAKE ASPIRIN, 81 MG, TWICE DAILY FOR 4 WEEKS UNLESS OTHERWISE DIRECTED. THIS IS YOUR BLOOD THINNER. * HIGH RISK PATIENTS MAY BE PRESCRIBED A STRONGER BLOOD THINNER. THIS WILL BE PROVIDED AT DISCHARGE. * CALL IF INCREASED PAIN, REDNESS, DRAINAGE OR FEVER GREATER THAT 101. * WEAR HUSAM HOSE 20 HOURS PER DAY FOR 2 WEEKS. * YOU MAY HAVE A LARGE BAND-AID LIKE DRESSING (SILVERON). THIS WILL REMAIN ON YOUR INCISION FOR 7 DAYS, THEN CAN BE REMOVED. IF INCISION IS LEAKING THROUGH DRESSING, CALL THE OFFICE . FOLLOW UP VISIT: If appointment is not already scheduled: Please call [facility] to make a follow-up appointment for 2 weeks after your surgery at . . Additional Information Patient informed of condition: Yes Advance Directives: Yes DNR: No Level of Care: Acute Rehab Communicable Disease: No Prognosis: Stable Current Hospital Diet Patient's current hospital diet: Regular Diet Discharge Diet Recommended Diet: Regular Diet Procedures Procedures Performed: Right Total Knee Arthroplasty Pending Studies Studies pending at discharge: no Physician Orders On Transfer Additional Orders: KEEP SILVERLON DRESSING INTACT X 7 DAYS HUSAM HOSE 20 HRS PER DAY X 2 WEEKS MAY SHOWER, NO TUB BATHS CONTINUE ASA 81MG BID X [address] UP [address]. LAU IN 2 WEEKS SCHEDULED. Medical Emergencies . Who to Call and When: Medical Emergencies: If at any time you feel your situation is an emergency, please call 911 immediately. . Non-Emergent Contact Non-Emergency issues call your: Primary Care Provider . . "Provider Documentation" section prepared by Dawn Giordano. Core Measure Problem Core Measures: None
[2016-05-10] MEDS ORDERED: SNK PO (12:01)
[2016-05-10] MEDS ORDERED: ACET-1257 PEG (12:01)
[2016-05-10] MEDS ORDERED: ASPEC81 PO (12:01)
[2016-05-10] MEDS: FLUVASTATIN SODIUM 20 MG CAP PO SCH (20:33)
[2016-05-10] MEDS: SENNA 8.6 MG TAB PO SCH (20:36)
--- NOTE | 2016-05-10 21:11 | Progress Note ---
Medicine Progress Note Date & Time of Visit: May 10, 2016 at 21:05. Subjective Patient seen and examined. She noted a little lightheadedness this morning that resolved with eating breakfast. Tolerated PT without incident. Ambulating in room without symptoms. Objective Last 8 Hrs Date Time Temp Pulse Resp B/P Pulse Ox O2 Delivery O2 Flow Rate FiO2 05/10/16 20:30 85 123/66 05/10/16 16:15 Room Air 05/10/16 15:23 37.1 73 18 114/77 95 Room Air Physical Exam: General-awake; alert; NAD Eyes-EOMI; no scleral icterus Neck-no stridor; trachea midline Lungs-CTA bilaterally; no wheezes/crackles Heart-RRR; no m/r/g Abdomen-soft; NTND; nBS Extremities-+bruising to right knee Neuro-no focal deficits Laboratory Results: Last 24 Hours Test 05/10/16 05:20 White Blood Count 8.83 K/uL Red Blood Count 2.69 M/uL Hemoglobin 8.6 g/dL Hematocrit 25.2 % Mean Corpuscular Volume 93.7 fL Mean Corpuscular Hemoglobin 32.0 pg Mean Corpuscular Hemoglobin Concent 34.1 g/dl RDW Standard Deviation 50.4 fL RDW Coefficient of Variation 14.9 % Platelet Count 162 K/uL Mean Platelet Volume 10.3 fL Sodium Level 133 mmol/L Potassium Level 3.6 mmol/L Chloride Level 97 mmol/L Carbon Dioxide Level 31 mmol/L Anion Gap 5.0 mmol/L Blood Urea Nitrogen 15 mg/dl Creatinine 0.66 mg/dl Est Creatinine Clear Calc Drug Dose 51.0 ml/min Estimated GFR () 95.3 Estimated GFR (Non- 82.3 BUN/Creatinine Ratio 22.6 Random Glucose 119 mg/dl Calcium Level 7.9 mg/dl Assessment & Plan Patient is an 80 y/o female with a h/o HTN who is status post right TKA on . Medicine was consulted for lightheadedness. Lightheadedness - likely related to acute blood loss anemia from surgery - Hgb 7.4 post-op - transfused 1 unit PRBCs with appropriate response in Hgb - CXR reviewed and unremarkable - resolved Acute blood loss anemia - post surgical from right TKA - transfused 1 unit PRBC's with appropriate response in Hgb - continue iron supplementation - no indication for further transfusion at this time HTN - continue metoprolol, chlorthalidone and lisinopril Status post right TKA - management per Ortho DVT prophylaxis - HUSAM's and SCD's - defer aspirin to Ortho Medicine to sign off at this time. Please re-consult if any further questions/ issues. Current Inpatient Medications: Current Inpatient Medications Medications (Trade) Dose Ordered Sig/Atilio Route Start Time Stop Time Status Last Admin Dose Admin Oxycodone HCl (Roxicodone Immediate Rel Tab) 1 TABLET FOR PAIN RATING... Q4H PRN PO 05/07/16 13:15 05/21/16 13:14 05/10/16 07:23 5 MG Oxycodone HCl (Oxycontin Tab) 10 mg Q12 PO 05/07/16 21:00 05/21/16 20:59 05/10/16 20:33 10 MG Magnesium Hydroxide (Milk Of Magnesia Susp) 30 ml Q6H PRN PO 05/07/16 13:15 06/06/16 13:14 05/09/16 18:49 30 ML Bisacodyl (Dulcolax Supp) 10 mg DAILY PRN [place] 05/07/16 13:15 06/06/16 13:14 Sodium Biphosphate/ Sodium Phosphate (Fleet Enema) 132 ml DAILY PRN [place] 05/07/16 13:15 06/06/16 13:14 Senna (Senokot Tab) 17.2 mg HS PO 05/07/16 21:00 06/06/16 20:59 05/09/16 21:15 17.2 MG Docusate Sodium (coLACE CAP) 100 mg BID PO 05/07/16 21:00 06/06/16 20:59 05/10/16 08:02 100 MG Diphenhydramine HCl (Benadryl Cap) 25 mg Q8H PRN PO 05/07/16 13:15 06/06/16 13:14 Zolpidem Tartrate (Ambien Tab) 5 mg HSZ PRN PO 05/07/16 13:15 06/06/16 13:14 Multivitamins (Multivitamin Tab) 1 tab QAM PO 05/08/16 09:00 06/07/16 08:59 05/10/16 08:07 1 TAB Ondansetron HCl (Zofran Inj) 4 mg Q6H PRN IV 05/07/16 13:15 06/06/16 13:14 05/10/16 00:00 4 MG Ferrous Gluconate (Ferrous Gluconate Tab) 324 mg TIDM PO 05/07/16 17:45 06/06/16 17:59 05/10/16 18:22 324 MG Aspirin (Ecotrin Tab) 81 mg BID PO 05/07/16 21:00 06/06/16 20:59 05/10/16 20:33 81 MG Chlorthalidone (Hygroton Tab) 12.5 mg QAM PO 05/08/16 09:00 06/07/16 08:59 05/10/16 08:05 12.5 MG Cholecalciferol (Vitamin D Tab) 1,000 inter.unit QAM PO 05/08/16 09:00 06/07/16 08:59 05/10/16 08:09 1,000 INTER.UNIT Dicyclomine HCl (Bentyl Cap) 10 mg DAILY PRN PO 05/07/16 13:15 06/06/16 13:14 Fluticasone Propionate (Flonase Nasal [place]) 2 sprays DAILY FAVIAN 05/08/16 09:00 06/07/16 08:59 05/10/16 08:01 2 SPRAYS Fluvastatin Sodium (Lescol Cap) 40 mg QPM PO 05/07/16 21:00 06/06/16 20:59 05/10/16 20:33 40 MG Lisinopril (Zestril Tab) 5 mg DAILY PO 05/08/16 09:00 06/07/16 08:59 05/10/16 08:10 5 MG Metoprolol Tartrate (Lopressor Tab) 50 mg BID PO 05/07/16 21:00 06/06/16 20:59 05/10/16 20:34 50 MG Potassium Chloride (Klor-Con Tab) 20 meq TID PO 05/07/16 21:00 06/06/16 20:59 05/10/16 20:34 20 MEQ Calcium/Vitamin D (Caltrate Plus Tab) 1 tab QAM PO 05/08/16 09:00 06/07/16 08:59 05/10/16 08:01 1 TAB Al Hydrox/Mg Hydrox/Simethicone (Maalox Max Susp) 15 ml Q6H PRN PO 05/08/16 08:30 06/07/16 08:29 05/10/16 10:28 15 ML Lactase (Lactaid Tab) 3,000 units QDB PO 05/08/16 09:00 06/07/16 08:59 05/10/16 08:00 3,000 UNITS Acetaminophen (Tylenol Tab) 650 mg Q4H PRN PO 05/09/16 10:30 06/08/16 10:29 05/10/16 10:27 650 MG
--- NOTE | 2016-05-11 06:35 | Orthopedic Progress Note ---
Orthopedic Progress Note Date of Service May 11, 2016. Subjective Post OP Day: 4 Reports: feeling well, pain controlled w PO medications, Denies: SOB, calf pain , chest pain, complaints, light headedness, nausea / vomiting Additional Notes: She is doing much better today. She was able to ambulate around the room on examination. She denies light headness at the time of examination. Objective calves soft nontender, N/V intact, capillary refill less than 2 sec., dressing C /D/I, A&O x3, toes mobile Date Time Temp Pulse Resp B/P Pulse Ox O2 Delivery O2 Flow Rate FiO2 05/10/16 23:55 37.2 73 16 110/60 93 Room Air 05/10/16 23:30 Room Air 05/10/16 20:30 85 123/66 05/10/16 16:15 Room Air 05/10/16 15:23 37.1 73 18 114/77 95 Room Air 05/10/16 11:36 36.8 72 18 136/68 94 Room Air 05/10/16 08:58 96 Room Air 05/10/16 07:39 36.5 88 16 128/75 96 Room Air 05/10/16 07:19 Room Air Assessment & Plan Assessment: POD #4 s/p Right TKA -PT/OT -HUSAM/SCD/ASA Acute blood loss anemia - patient feeling better this morning. Denies light headedness, dizziness, or SOB. Significant for hypertension, hypercholesterolemia, GERD, hiatal hernia and diverticulitis. Inhouse Planning Pain Management: Oxycontin, PO Tylenol, Oxy IR DVT Prophylaxis: TEDs, SCDs, ASA Discharge Planning Discharge Planning: [facility] facility ([facility] Pain Management: Oxycontin, PO Tylenol, Oxy IR DVT Prophylaxis: TEDs, SCDs, ASA Therapy: Physical Therapy
[2016-05-11 07:27] VITALS: BP 131/65; PULSE 76; TEMP 36.8; O2SAT 96
[2016-05-11] MEDS: LACTASE 3000 UNIT TAB PO SCH (08:30)
[2016-05-11] MEDS: ASPIRIN 81 MG ECTAB PO SCH (08:48)
[2016-05-11] MEDS: CHLORTHALIDONE 25 MG TAB PO SCH (08:49)
[2016-05-11] MEDS: DOCUSATE SODIUM 100 MG CAP PO SCH (08:49)
[2016-05-11] MEDS: FLUTICASONE PROPIONATE NA SPR 16 GM BTL NAE SCH (08:49)
[2016-05-11] MEDS: CALCIUM 600MG + VIT D 400 IU TAB PO SCH (08:49)
[2016-05-11] MEDS: CHOLECALCIFEROL 1000 INTER.UNIT TAB PO SCH (08:50)
[2016-05-11] MEDS: METOPROLOL TARTRATE 50 MG TAB PO SCH (08:50)
[2016-05-11] MEDS: POTASSIUM CHLORIDE 20 MEQ TABCR PO SCH ×2 (08:50→14:23)
[2016-05-11] MEDS: LISINOPRIL 5 MG TAB PO SCH (08:51)
[2016-05-11] MEDS: FERROUS GLUCONATE 324 MG TAB PO SCH ×2 (08:51→12:32)
[2016-05-11] MEDS: MULTIVITAMIN TAB PO SCH (08:51)
[2016-05-11] MEDS: OXYCODONE HCL 10 MG TABCR (OXYCONTIN) PO SCH (08:54)
[2016-05-11] MEDS ORDERED: CHOLESTYRAMINE LIGHT 4 GM PKT PO SCH (10:00)
[2016-05-11] MEDS: ACETAMINOPHEN 325 MG TAB PO PRN (11:11)
[2016-05-11 15:27] VITALS: BP 98/52; PULSE 85; TEMP 37; O2SAT 97
[2016-05-11 16:29] VITALS: BP 98/52; PULSE 85; TEMP 37; O2SAT 97
[2016-05-12] MEDS ORDERED: CHOLESTYRAMINE LIGHT 4 GM PKT PO SCH (10:00)
--- NOTE | 2016-05-12 14:07 | DISCHARGE SUMMARY ---
ADMISSION DIAGNOSIS: Osteoarthritis of the right knee. DISCHARGE DIAGNOSIS: Right knee TKA. CONSULTS: Dr. Niyah Ruvalcaba. PROCEDURES: On 05/07/2016 the patient had a right TKA. HISTORY OF PRESENT ILLNESS: The patient is an 80-year-old female that presents with right knee pain. She states that the pain occurs constantly and has been getting progressively worse over time. She describes the pain as being dull, achy and constant. She has had no relief with nonsteroidal antiinflammatories, physical therapy, cortisone injections and visco injection. She would like to proceed with a right total knee arthroplasty. HOSPITAL COURSE: Post day 1 the patient was feeling well. Pain was controlled with p.o. medications. She denied any chest pain, lightheadedness, nausea, vomiting, shortness of breath. Her Hemovac drainage was 350 cc per 8 hours. Her hematocrit was 25.6. Her hemoglobin was 8.8. Postop day 2 patient was feeling well, but started noticing having some lightheadedness. The pain was controlled with p.o. medications. She denied chest pain or shortness of breath, but she was experiencing lightheadedness and dizziness. It was discussed with the patient that she was having an acute blood loss anemia secondary to her surgery. One unit of packed red blood cells was ordered. A recheck of the hematocrit and hemoglobin was performed and a consult to medicine was done. Her hematocrit on postop day 2 was 21.8 and her hemoglobin was 7.4. Postop day 3 patient was feeling well. She was still having some lightheadedness. She denied shortness of breath or chest pain. Her hematocrit and hemoglobin was 25.2 and 8.6 respectively. She seemed to stabilize at this point in time. We were pending which assisted facility that she would go to. Postop day 4 she was feeling well. Pain was controlled with p.o. medications. She denied lightheadedness, chest pain, shortness of breath. She was able to ambulate around the room. It was at this point in time that she would be going to [facility] assisted facility. DISCHARGE CONDITION: Stable. DISPOSITION: [facility] facility. MEDICATIONS: Acetaminophen 1000 mg every 8 hours for 30 days, aspirin 81 mg twice a day for 30 days, OxyContin 10 mg by mouth every 12 hours, oxycodone 5-10 mg every 4 hours as needed for pain, Senna 17.2 mg by mouth at bedtime for 14 days, calcium and vitamin D one tablet in the morning, chlorthalidone 12.5 mg by mouth daily in the morning, cholecalciferol 1000 units by mouth daily in the morning, cholestyramine one dose by mouth daily in the morning, fluticasone two sprays each nostril daily for congestion, fluvastatin 40 mg by mouth daily in the evening, lisinopril 5 mg by mouth daily, metoprolol 50 mg by mouth twice daily, multivitamin by mouth daily in the morning, Klor-Con 20 mEq by mouth three times daily. She is to be right lower extremity weightbearing as tolerated. She is allowed to have a regular diet. She is to wear long elastic stockings 20 hours a day for 2 weeks after surgery. She is to begin physical therapy 2-3 times a week. She may shower but no hot tubs or baths until cleared by the doctor. She is to call [facility] if she notices increase knee pain, swelling or drainage from her incision site, shortness of breath or chest pain. She is to remember to take aspirin 81 mg twice a day for 4 weeks. She is to followup in 2 weeks after her surgery with Dr. Polanco or his PA. PRUDENCE
== END 2016-05-11 16:51 | DRG 470 ==
LOC: ENRESERVDT → ENRESERVTM → C.ACU 08:03 → C.3E 15:20
PROVIDERS: ADMIT Orthopaedic Surgery; ATTEND Orthopaedic Surgery
PROC: 0SRC0J9 Replacement of Right Knee Joint with Synthetic Substitute, Cemented, Open Approach (ICD-10-PCS; principal; 2016-05-07 10:15)
DX: M17.11 Unilateral primary osteoarthritis, right knee (principal); D62 Acute posthemorrhagic anemia; K57.92 Diverticulitis of intestine, part unspecified, without perforation or abscess without bleeding; K21.9 Gastro-esophageal reflux disease without esophagitis; E78.00 Pure hypercholesterolemia, unspecified; I95.9 Hypotension, unspecified; K44.9 Diaphragmatic hernia without obstruction or gangrene; I10 Essential (primary) hypertension; E66.9 Obesity, unspecified; I35.1 Nonrheumatic aortic (valve) insufficiency; J45.909 Unspecified asthma, uncomplicated; R20.0 Anesthesia of skin; R42 Dizziness and giddiness; R41.0 Disorientation, unspecified; M54.5 Low back pain; M06.9 Rheumatoid arthritis, unspecified; Z86.73 Personal history of transient ischemic attack (TIA), and cerebral infarction without residual deficits; Z96.652 Presence of left artificial knee joint; Z68.31 Body mass index [BMI] 31.0-31.9, adult; Z79.82 Long term (current) use of aspirin; Z79.899 Other long term (current) drug therapy

== ENCOUNTER → 2016-05-24 | Outpatient (CLI) | payer OTHER ==
[~2016-05-24] MED LIST changes: +ACET-1257 PEG; -ACET1TAB84 PO; -ACETAMINOPHEN 500 MG TAB PO SCH; +ASPEC81 PO; -ASPI81TA28 PO; -BUPIVACAINE 0.5 % 5 MG/1 ML PF 10ML VIAL ONE; -CEFAZOLIN 1000MG/55 ML D5W 55 ML IV SCH; -CeleBREX 200 MG CAP PO SCH; -DEXAMETHASONE 4 MG TAB PO SCH; -FAMOTIDINE 20 MG TAB PO SCH; -FENTANYL CITRATE INJ 50 MCG/1 ML 2 ML VIAL ONE; -GABAPENTIN 300 MG CAP PO SCH; -LACTATED RINGER'S 1000ML IV SCH; -METOCLOPRAMIDE HCL 10 MG TAB PO SCH; -MIDAZOLAM HCL 1 MG/ML 2ML VIAL ONE; -ONDANSETRON INJ 2 MG/ML 2 ML VIAL ONE; +OXYSR10 PO; -PROPOFOL IV EMULSION 10 MG/ML 20 ML VIAL IV ONE; -ROPIVACAINE 5MG/ML 30 ML 150 MG, BUPIVACAINE/EPINEPHR 0.5% MPF 30 ML, KETOROLAC TROMETH... INFIL SCH; +RXC5 PO; +SNK PO
--- NOTE | 2016-05-24 16:35 | DIAGNOSTIC IMAGING REPORT ---
RIGHT LOWER EXTREMITY VENOUS DOPPLER HISTORY: PAIN AND SWELLING IN RIGHT LEG Right COMPARISON STUDY: None. FINDINGS: There is normal compressibility, flow, and augmentation within the right lower extremity deep venous system. There is a 5.6 x 0.9 cm popliteal cyst. IMPRESSION: No DVT within the right lower extremity Electronically signed by: Lv Roberts M.D. 05/24/2016 4:34 PM Dictated Date/Time: 05/24/2016 4:33 PM
== END | disposition home or self-care (01) ==
LOC: C.ULTR 15:54
PROVIDERS: ATTEND Orthopaedic Surgery
DX: M17.11 Unilateral primary osteoarthritis, right knee (principal); M79.604 Pain in right leg; R60.0 Localized edema

== ENCOUNTER 2017-10-15 12:02 | Emergency (ER) | payer OTHER ==
[~2017-10-15 12:02] MED LIST changes: +ACET-1256 PO; -ACET-1257 PEG; -ASPEC81 PO; +ASPI81TA28 PO; +CHOL4POW12 PO; -CHOL4POW6 PO; +CIPR250T26 PO; +CLC100 PO; +CLR10 PO; +FAMO10TA16 PO; +FEXO1TAB49 PO; -FLNIN NAE; +HYG/25 PO; -HYG25 PO; -LISI5TAB PO; +LPR25 PO; -METO-551 PO; +MRLP17X PO; -OXYSR10 PO; +POTA-639 PO; -POTA20TA16 PO; -RXC5 PO; +SENN-61 PO; -SNK PO
[2017-10-15 12:03] VITALS: TEMP 37; Ht 144.8 cm
[2017-10-15] MEDS ORDERED: CLR10 PO (12:20)
[2017-10-15 12:25] VITALS: O2SAT 95
[2017-10-15] MEDS ORDERED: SODIUM CHLORIDE 0.9% 500ML 500 ML IV STA (12:26)
[2017-10-15] MEDS ORDERED: MECLIZINE HCL 25 MG TAB PO STA (12:26)
--- NOTE | 2017-10-15 12:37 | EMERGENCY ROOM VISIT NOTE ---
History Report prepared by Melany: Sav Del Real Under the Supervision of: Dr. Lamin Baldwin M.D. First contact with patient: 12:08 Chief Complaint: FALL Stated Complaint: FALL TODAY & LAST WEEK History of Present Illness The patient is a 82 year old female who presents to the Emergency Room with complaints of constant bilateral buttock pain due to a fall that occurred this morning. Patient states she was sleeping in a lounge chair when she then got up too fast. She states she stood for awhile until her "dizzy" feeling subsided and then took four steps and fell backwards. Patient describes the feeling prior to her fall as a "form of vertigo". She states she then "scooted" over to a chair in her bedroom following the fall and sat for awhile. Patient estimates she was on the ground for about 40 minutes. Patient denies hitting her head from the fall. She states she eventually got up from the chair to go to the bathroom and states she had no problems walking to the bathroom. Patient adds she has a "black and blue" finger because it got caught in the doorway while she was trying to break her fall. Past medical history includes vertigo which the patient states she tries to avoid triggers for. Patient is present with her daughter. Daughter states the patient had similar symptoms this past week but was able to fall into a chair. She adds the patient had a UTI a couple of weeks ago. Patient adds that she gets home-nursing care daily. She adds she mentioned her falls to home-nursing but they state it was "nothing serious". Patient adds she takes a baby aspirin daily. Patient adds she lives by herself. Past medical history includes back and knee surgeries. Patient states she feels good while in the ER. She denies fevers, chills, nausea, cough, diarrhea, and urinary symptoms. Patient states she has been drinking and eating normally. Source of History: patient, family (Daughter) Onset: This morning Position: buttock (bilateral) Timing: constant Modifying Factors (Relieving): other (Sitting down) Associated Symptoms: No LOC, No fevers, No chills, No cough, No nausea, No diarrhea, No urinary symptoms Review of Systems See HPI for pertinent positives and negatives. A total of ten systems were reviewed and were otherwise negative. 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 (11) Sepsis (12) Syncope Surgical Problems: (1) History of parotid gland removal (2) History of thyroidectomy, subtotal (3) History of total hysterectomy (4) S/P lumbar spinal fusion Family History Cancer Heart disease Hypertension Social History Smoking Status: Never Smoker Drug Use: none Marital Status: Occupation Status: retired Current/Historical Medications Scheduled Acetaminophen (Tylenol), 500 MG PO QID Aspirin (Aspirin Ec), 81 MG PO DAILY Calcium Carbonate-Vitamin D (Calcium 500 + D), 1 TAB PO 3XWK Chlorthalidone (Hygroton), 12.5 MG PO QAM Cholecalciferol (Vitamin D 1000 Unit), 1,000 INTER.UNIT PO QAM Cholestyramine (Questran), 1 PKT PO QAM Ciprofloxacin (Ciprofloxacin HCl), 250 MG PO BID Famotidine (Pepcid Ac), 10 MG PO BID Fluvastatin (Lescol), 40 MG PO QPM Loratadine (Claritin), 10 MG PO DAILY Loratadine (Claritin), 10 MG PO DAILY Metoprolol Tartrate (Lopressor), 25 MG PO BID Multivitamin (Multivitamin), 1 TAB PO QAM Potassium Ext Rel (Klor-Con), 20 MEQ PO TID Scheduled PRN Dicyclomine Hcl (Bentyl), 1 CAP PO DAILY PRN for cramping Docusate Sodium (Docusate Sodium), 100 MG PO DAILY PRN for Constipation Meclizine Hcl (Meclizine Hcl), 25 MG PO TID PRN for Dizziness Polyethylene (Miralax), 17 GM PO DAILY PRN for Constipation Senna (Senokot), 2 TAB PO HS PRN for Constipation Allergies Coded Allergies: Omeprazole (Verified Allergy, Mild, "COLITIS", 10/15/17) Sulfa Antibiotics (Verified Allergy, Mild, "SULFA DRUGS": RASH & SORE MOUTH, 10/15/17) Atorvastatin (Verified Adverse Reaction, Mild, DIZZINESS, 10/15/17) Physical Exam Vital Signs Date Time Temp Pulse Resp B/P (MAP) Pulse Ox O2 Delivery O2 Flow Rate FiO2 10/15/17 17:19 68 18 183/70 96 Room Air 10/15/17 16:27 67 18 154/66 96 Room Air 10/15/17 14:06 76 20 153/74 94 Room Air 10/15/17 12:25 95 Room Air 10/15/17 12:25 95 Room Air 10/15/17 12:03 37.0 76 18 173/85 97 Room Air Physical Exam GENERAL: Awake, alert, fatigued-appearing, in no distress HENT: Normocephalic, atraumatic. Oropharynx unremarkable. EYES: Normal conjunctiva. Sclera non-icteric. NECK: Supple. No nuchal rigidity. FROM. No JVD. RESPIRATORY: Clear to auscultation. CARDIAC: Regular rate, normal rhythm. Extremities warm and well perfused. Pulses equal. ABDOMEN: Soft, non-distended. No tenderness to palpation. No rebound or guarding. No masses. RECTAL: Deferred. MUSCULOSKELETAL: Chest examination reveals no tenderness. The back is symmetrical on inspection without obvious abnormality. There is no CVA tenderness to palpation. No joint edema. LOWER EXTREMITIES: Calves are equal size bilaterally and non-tender. No edema. No discoloration. NEURO: Normal sensorium. No sensory or motor deficits noted. Normal cerebellar function with [id number], alternating palms, [id number]. SKIN: No rash or jaundice noted. Medical Decision & Procedures ER Provider Diagnostic Interpretation: Radiology results as stated below per my review and radiologist interpretation: SINGLE VIEW PELVIS CLINICAL HISTORY: Fall. FINDINGS: An AP pelvic radiograph is obtained. No prior studies are available for comparison at the time of dictation. The skeletal structures are osteopenic. There is no radiographic evidence of fracture involving the hips or bony pelvis. Mild to moderate arthritic change and joint space narrowing is seen in the hips. Sclerotic change is present in the sacroiliac joints. Tiny enthesophytes arise from the anterior superior iliac spines. Advanced degenerative change and extensive fusion hardware is noted in the lumbar spine. Mild soft tissue edema is noted in the upper thighs. There is no bowel obstruction. Moderate colonic fecal retention is observed. IMPRESSION: Osteopenia and degenerative change as above. There is no radiographic evidence of fracture involving the hips or bony pelvis. Electronically signed by: Chinmay Vilbert, M.D. 10/15/2017 1:[address] ANGIOGRAM OF THE BRAIN COMBO; CT ANGIOGRAM OF THE NECK CLINICAL HISTORY: Vertigo. COMPARISON STUDY: CT of the brain an CT scan of the cervical spine dated 09/28/2017. Carotid artery ultrasound dated 11/14/2015. Chest CT dated 12/11/2015. TECHNIQUE: Unenhanced axial CT scan of the brain is performed. Subsequently, following the IV administration of 116 of Optiray 320, CT angiogram of the head and neck was performed from the aortic arch to the vertex. Images are reviewed in the axial, sagittal, and coronal planes. 3-D MIPS images are created and assessed. IV contrast was administered without complication. All measurements were calculated based on NASCET criteria. A dose lowering technique was utilized adhering to the principles of ALARA. The CT angiogram of the neck is modestly degraded by motion artifact. CT DOSE: 947.37 mGy.cm FINDINGS: Brain parenchyma: There are age-related involutional changes noting mild subcortical and periventricular microangiopathic disease. There is no hemorrhage, mass effect, or evidence of acute territorial ischemia by CT criteria. There is no evidence of enhancing mass lesion on the angiogram phase images. The ventricles, sulci, and cisterns are prominent secondary to involutional change. Martinez-white matter differentiation is preserved. No extra-axial fluid collection is seen. Thoracic aorta: Visualized portions of the thoracic aorta are normal in caliber. The aortic arch demonstrates standard 3-vessel anatomy. Right carotid arterial system: The right common carotid artery is widely patent, as are the right internal and external carotid arteries. Left carotid arterial system: The left common carotid artery is widely patent, as are the left internal and external carotid arteries. Mild atherosclerotic calcification is noted in the carotid bulb. Vertebral arteries: The vertebral arteries are widely patent and codominant. Subclavian arteries: Widely patent bilaterally. Intracranial vasculature: There is atherosclerotic calcification of the cavernous carotid arteries. There is origin of the right posterior cerebral artery. There is a large left posterior indicating artery. The internal carotid arteries are patent at the skull base, as are the anterior and middle cerebral arteries bilaterally. The basilar is somewhat diminutive. The vertebrobasilar system and posterior cerebral arteries are widely patent. The vertebral arteries are codominant. There is no aneurysm, high-grade stenosis, or focal vessel cut off seen throughout the intracranial circulation. Jugular veins: Widely patent bilaterally. Dural sinuses: Patent. Lung apices: Partially visualized upper lobe lung parenchyma appears clear. Soft tissues: The visualized pharyngeal soft tissues are normal in appearance noting angiographic phase technique. The oropharyngeal airway appears widely patent. The salivary glands are normal as imaged. The thyroid gland is enlarged and heterogeneous. Low-attenuation thyroid nodules measure up to 1.5 cm. No cervical lymphadenopathy is seen. Calcified tonsilliths are observed. Skeletal structures: The skeletal structures are osteopenic. The calvarium is normal in appearance. The cervical spine appears intact noting multilevel spondylosis. Soft tissues: There is a small left frontal scalp contusion. Orbits: The bony orbits are intact. Orbital contents are normal in appearance noting bilateral ocular lens implants. Sinuses and mastoids: There is trace fluid within the sphenoid sinuses. The remaining paranasal sinuses are clear. The mastoid air cells are well pneumatized. IMPRESSION: 1. There is no hemorrhage, mass effect, or evidence of acute territorial ischemia by CT criteria. 2. Unremarkable CT angiogram of the brain. 3. Unremarkable CT angiogram of the neck. 4. Enlarged and multinodular thyroid gland, similar in appearance to the [address] Electronically signed by: Chinmay Norris M.D. 10/15/2017 2:28 PM SINGLE VIEW CHEST CLINICAL HISTORY: Atypical chest pain. FINDINGS: An AP, portable, upright chest radiograph is compared to study dated 09/28/2017 and correlated with chest CT dated 12/11/2015. The examination is degraded by portable technique, apical lordotic positioning, and patient rotation. The heart is enlarged and there is atherosclerotic calcification of the thoracic aorta. The pulmonary vasculature is noncongested. Chronic interstitial thickening is similar to previous. There is unchanged elevation of right hemidiaphragm with linear atelectasis/scarring in the right midlung. There is no airspace consolidation typical for pneumonia or large pleural effusion. No pneumothorax is seen. The skeletal structures are osteopenic. The bony thorax is grossly intact. Fusion hardware is noted in the upper lumbar spine. Calcific tendinopathy is present in the left shoulder. IMPRESSION: Cardiomegaly and chronic parenchymal changes as above. No acute cardiopulmonary abnormality is identified. Electronically signed by: Chinmay Norris M.D. 10/15/2017 1:[address] ANGIOGRAM OF THE BRAIN COMBO; CT ANGIOGRAM OF THE NECK CLINICAL HISTORY: Vertigo. COMPARISON STUDY: CT of the brain an CT scan of the cervical spine dated 09/28/2017. Carotid artery ultrasound dated 11/14/2015. Chest CT dated 12/11/2015. TECHNIQUE: Unenhanced axial CT scan of the brain is performed. Subsequently, following the IV administration of 116 of Optiray 320, CT angiogram of the head and neck was performed from the aortic arch to the vertex. Images are reviewed in the axial, sagittal, and coronal planes. 3-D MIPS images are created and assessed. IV contrast was administered without complication. All measurements were calculated based on NASCET criteria. A dose lowering technique was utilized adhering to the principles of ALARA. The CT angiogram of the neck is modestly degraded by motion artifact. CT DOSE: 947.37 mGy.cm FINDINGS: Brain parenchyma: There are age-related involutional changes noting mild subcortical and periventricular microangiopathic disease. There is no hemorrhage, mass effect, or evidence of acute territorial ischemia by CT criteria. There is no evidence of enhancing mass lesion on the angiogram phase images. The ventricles, sulci, and cisterns are prominent secondary to involutional change. Martinez-white matter differentiation is preserved. No extra-axial fluid collection is seen. Thoracic aorta: Visualized portions of the thoracic aorta are normal in caliber. The aortic arch demonstrates standard 3-vessel anatomy. Right carotid arterial system: The right common carotid artery is widely patent, as are the right internal and external carotid arteries. Left carotid arterial system: The left common carotid artery is widely patent, as are the left internal and external carotid arteries. Mild atherosclerotic calcification is noted in the carotid bulb. Vertebral arteries: The vertebral arteries are widely patent and codominant. Subclavian arteries: Widely patent bilaterally. Intracranial vasculature: There is atherosclerotic calcification of the cavernous carotid arteries. There is origin of the right posterior cerebral artery. There is a large left posterior indicating artery. The internal carotid arteries are patent at the skull base, as are the anterior and middle cerebral arteries bilaterally. The basilar is somewhat diminutive. The vertebrobasilar system and posterior cerebral arteries are widely patent. The vertebral arteries are codominant. There is no aneurysm, high-grade stenosis, or focal vessel cut off seen throughout the intracranial circulation. Jugular veins: Widely patent bilaterally. Dural sinuses: Patent. Lung apices: Partially visualized upper lobe lung parenchyma appears clear. Soft tissues: The visualized pharyngeal soft tissues are normal in appearance noting angiographic phase technique. The oropharyngeal airway appears widely patent. The salivary glands are normal as imaged. The thyroid gland is enlarged and heterogeneous. Low-attenuation thyroid nodules measure up to 1.5 cm. No cervical lymphadenopathy is seen. Calcified tonsilliths are observed. Skeletal structures: The skeletal structures are osteopenic. The calvarium is normal in appearance. The cervical spine appears intact noting multilevel spondylosis. Soft tissues: There is a small left frontal scalp contusion. Orbits: The bony orbits are intact. Orbital contents are normal in appearance noting bilateral ocular lens implants. Sinuses and mastoids: There is trace fluid within the sphenoid sinuses. The remaining paranasal sinuses are clear. The mastoid air cells are well pneumatized. IMPRESSION: 1. There is no hemorrhage, mass effect, or evidence of acute territorial ischemia by CT criteria. 2. Unremarkable CT angiogram of the brain. 3. Unremarkable CT angiogram of the neck. 4. Enlarged and multinodular thyroid gland, similar in appearance to the [address] Electronically signed by: Chinmay Norris M.D. 10/15/2017 2:28 PM MRI OF THE BRAIN COMBO CLINICAL HISTORY: Vertigo. Recent fall. COMPARISON STUDY: CT of the brain dated 10/15/2017. TECHNIQUE: MRI of the brain was performed utilizing various T1 and T2-weighted sequences in the axial, sagittal, and coronal planes. Contrast-enhanced sequences were acquired following the administration of 6.5 cc of Gadavist. FINDINGS: Brain parenchyma: There are age-related involutional changes noting moderate patchy subcortical and periventricular microangiopathic disease. There is no hemorrhage or mass effect. There is no restricted diffusion to suggest acute ischemia. No enhancing mass lesion is identified on the postcontrast images. Martinez-white matter differentiation is preserved. No extra-axial fluid collection is seen. 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 The cerebellar tonsils are normal in configuration. Ventricles, sulci, and cisterns: Prominent secondary to involutional change. Pituitary and sella: Unremarkable. Intracranial vasculature: Normal flow voids are maintained at the skull base. Orbits: The bony orbits are grossly intact. Orbital contents are normal in appearance noting bilateral ocular lens implants. Sinuses and mastoids: There is trace fluid within the sphenoid sinuses. The remaining cranial sinuses and mastoid air cells are clear. Calvarium: Unremarkable. Cervical cord: Partially visualized cervical spinal cord is normal in morphology and signal intensity. IMPRESSION: 1. No acute intracranial abnormality. 2. 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 Electronically signed by: Chinmay Norris M.D. 10/15/2017 4:26 PM Laboratory Results 10/15/17 12:40 Red Blood Count 3.73, Mean Corpuscular Volume 95.7, Mean Corpuscular Hemoglobin 32.7, Mean Corpuscular Hemoglobin Concent 34.2, Mean Platelet Volume 9.6, Neutrophils (%) (Auto) 72.1, Lymphocytes (%) (Auto) 17.8, Monocytes (%) (Auto) 9.1, Eosinophils (%) (Auto) 0.7, Basophils (%) (Auto) 0.1, Neutrophils # (Auto) 5.88, Lymphocytes # (Auto) 1.45, Monocytes # (Auto) 0.74, Eosinophils # (Auto) 0.06, Basophils # (Auto) 0.01 10/15/17 12:40 Test 10/15/17 12:40 White Blood Count 8.16 K/uL (4.8-10.8) Red Blood Count 3.73 M/uL (4.2-5.4) Hemoglobin 12.2 g/dL (12.0-16.0) Hematocrit 35.7 % (37-47) Mean Corpuscular Volume 95.7 fL (80-100) Mean Corpuscular Hemoglobin 32.7 pg (25-34) Mean Corpuscular Hemoglobin Concent 34.2 g/dl (32-36) Platelet Count 244 K/uL (130-400) Mean Platelet Volume 9.6 fL (7.4-10.4) Neutrophils (%) (Auto) 72.1 % Lymphocytes (%) (Auto) 17.8 % Monocytes (%) (Auto) 9.1 % Eosinophils (%) (Auto) 0.7 % Basophils (%) (Auto) 0.1 % Neutrophils # (Auto) 5.88 K/uL (1.4-6.5) Lymphocytes # (Auto) 1.45 K/uL (1.2-3.4) Monocytes # (Auto) 0.74 K/uL (0.11-0.59) Eosinophils # (Auto) 0.06 K/uL (0-0.5) Basophils # (Auto) 0.01 K/uL (0-0.2) RDW Standard Deviation 46.8 fL (36.4-46.3) RDW Coefficient of Variation 13.5 % (11.5-14.5) Immature Granulocyte % (Auto) 0.2 % Immature Granulocyte # (Auto) 0.02 K/uL (0.00-0.02) Anion Gap 8.0 mmol/L (3-11) Estimated GFR () 74.0 Estimated GFR (Non- 63.8 BUN/Creatinine Ratio 30.5 (10-20) Calcium Level 9.6 mg/dl (8.5-10.1) Phosphorus Level 2.2 mg/dl (2.5-4.9) Magnesium Level 1.4 mg/dl (1.8-2.4) Total Bilirubin 0.8 mg/dl (0.2-1) Direct Bilirubin 0.2 mg/dl (0-0.2) Aspartate Amino Transf (AST/SGOT) 25 U/L (15-37) Alanine Aminotransferase (ALT/SGPT) 23 U/L (12-78) Alkaline Phosphatase 75 U/L (45-117) Troponin I < 0.015 ng/ml (0-0.045) Total Protein 7.1 gm/dl (6.4-8.2) Albumin 3.9 gm/dl (3.4-5.0) Lipase 203 U/L (73-393) Laboratory results reviewed by me Medications Administered Medications (Trade) Dose Ordered Sig/Atilio Route Start Time Stop Time Status Last Admin Dose Admin Sodium Chloride 500 ml @ 999 mls/hr Q31M STAT IV 10/15/17 12:26 10/15/17 12:56 DC 10/15/17 12:26 999 MLS/HR Meclizine HCl (Antivert Tab) 25 mg NOW STAT PO 10/15/17 12:26 10/15/17 12:34 DC 10/15/17 12:26 25 MG Magnesium Sulfate (Magnesium Sulfate 1gm / D5W) 2 gm NOW STAT IV 10/15/17 14:40 10/15/17 14:42 DC 10/15/17 14:40 2 GM Potassium/ Phosphorus/Sodium (Phospha 250 Neutral 155-852-130 Mg) 2 tab NOW STAT PO 10/15/17 14:40 10/15/17 14:42 DC 10/15/17 14:40 2 TAB Lorazepam (Ativan Tab) 0.5 mg NOW STAT SL 10/15/17 15:33 10/15/17 15:34 DC 10/15/17 15:33 0.5 MG ECG Per My Interpretation Indication: other (Dizziness) Rate (beats per minute): 72 Rhythm: normal sinus Findings: other (Right axis deviation, question lead reversal) ED Course 1208: The patient was evaluated in room B10. A complete history and physical exam was performed. 1733: I reevaluated the patient. Discussed results and discharge instructions. She verbalized understanding and agreement. The patient is ready for discharge. Medical Decision I reviewed the patient's past medical history, medications, and the nursing notes as described above. Differential diagnosis: Etiologies such as benign positional vertigo, dehydration, hypovolemia, anemia, tumor, infection, hypoglycemia, electrolyte abnormalities, cardiac sources, intracerebral event, toxicologic, neurologic, as well as others were entertained. The patient is an 82-year-old woman who presents emergency department with dizziness/question vertigo when getting up from her chair today falling onto her backside with no head strike per hpi. Of note, the patient had admission approximately 2 weeks ago for fall and UTI. She reports early in the week had a similar dizziness spell but she fell into her chair. On arrival the patient is fatigued appearing but no acute distress, afebrile stable vital signs. On exam the patient appears clinically dry. Patient has reproduction of symptoms when sitting up and head movements with bilateral horizontal nystagmus. Otherwise, the patient is intact neurologically including .examcerebellar. EKG demonstrates normal sinus at 72 without evidence of acute ischemia. RAD 2/2 lead reversal. Repeat EKG similar to prior. WBC within normal limits. Creatinine within normal limits. However, BUN/creatinine> 20 suggesting mild dehydration. Additionally potassium 3.6, phosphorus 2.2, magnesium 1.4. These were repleted. Otherwise troponin within normal limits. Chest x-ray negative. CTA of the head and neck unremarkable. Given the patient's persistent dizziness/vertigo symptoms we will obtain MRI to rule out posterior stroke. MRI subsequently unremarkable. Patient improved after IVF hydration, Meclizine, electrolyte repletion. Ambulating without difficulty. I d/w patient that she might considering a personal nursing home or similar place where she could have more help if need. She reports that she has a visiting aid daily and prefers living in her home. Patient and daughter at bedside feel OK for discharge to home. Plan for pcp f/u. Findings and plan for follow-up reviewed with patient. Patient agreeable and d/c'd per discharge instructions. Medication Reconcilliation Current Medication List: was personally reviewed by me Blood Pressure Screening Patient's blood pressure: Elevated blood pressure Blood pressure disposition: Elevated BP felt to be situational Impression Primary Impression: Dehydration Additional Impression: Vertigo Scribe Attestation The scribe's documentation has been prepared under my direction and personally reviewed by me in its entirety. I confirm that the note above accurately reflects all work, treatment, procedures, and medical decision making performed by me. Departure Information Dispostion Home / Self-Care Prescriptions Meclizine Hcl (MECLIZINE HCL) 25 Mg Tab 25 MG PO TID Y for Dizziness, #21 TAB Prov: Lamin Baldwin M.D. 10/15/17 Referrals Romi Morales M.D. (PCP) Patient Instructions ED BPV Vertigo, ED Dehydration, ED Vertigo Unspecified, My [facility] Additional Instructions Please follow up with your primary care physician on Tuesday for re-evaluation and to repeat your electrolytes, which were slightly low today. Your symptoms today are likely due to a peripheral vertigo in the setting of mild dehydration. Otherwise, your exam, EKG, chest xray, lab results, CT scan of your head/neck with contrast and MRI of your brain did not show signs of an emergent condition at this time. Meclizine as needed for return of vertigo. Daily multi-vitamin. Drink plenty of fluids to ensure hydration. Return to the emergency department for worsening symptoms as described in the accompanying instructions. Problem Qualifiers
[2017-10-15] MEDS ORDERED: OPTIRAY 320 IV PRN (12:45)
[2017-10-15 12:51] LABS: HEMATOCRIT 35.7 % (37-47); HEMOGLOBIN 12.2 g/dL (12.0-16.0); MEAN CELL VOLUME 95.7 fL (80-100); MEAN CORPUSCULAR HEMOGLOBIN 32.7 pg (25-34); MEAN CORPUSCULAR HGB CONC 34.2 g/dl (32-36); MEAN PLATELET VOLUME 9.6 fL (7.4-10.4); PLATELET COUNT 244 K/uL (130-400); RED CELL DISTRIBUTION WIDTH CV 13.5 % (11.5-14.5); RED CELL DISTRIBUTION WIDTH SD 46.8 fL (36.4-46.3); WHITE BLOOD COUNT 8.16 K/uL (4.8-10.8)
[2017-10-15 13:12] LABS: ALBUMIN 3.9 gm/dl (3.4-5.0); ALKALINE PHOSPHATASE 75 U/L (45-117); ALT/SGPT 23 U/L (12-78); AST/SGOT 25 U/L (15-37); BLOOD UREA NITROGEN 26 mg/dl (7-18); CALCIUM 9.6 mg/dl (8.5-10.1); CARBON DIOXIDE 27 mmol/L (21-32); CREATININE 0.84 mg/dl (0.60-1.20); GLUCOSE 79 mg/dl (70-99); LIPASE 203 U/L (73-393); PHOSPHORUS 2.2 mg/dl (2.5-4.9); POTASSIUM 3.6 mmol/L (3.5-5.1); SODIUM 140 mmol/L (136-145); TOTAL PROTEIN 7.1 gm/dl (6.4-8.2)
[2017-10-15 13:14] LABS: BASO % 0.1 %; BASO ABS # 0.01 K/uL (0-0.2); EOS % 0.7 %; EOS ABS # 0.06 K/uL (0-0.5); IG# 0.02 K/uL (0.00-0.02); LYMPH % 17.8 %; LYMPH ABS # 1.45 K/uL (1.2-3.4); MONO % 9.1 %; MONO ABS # 0.74 K/uL (0.11-0.59); NEUT % 72.1 %; NEUT ABS # 5.88 K/uL (1.4-6.5)
--- NOTE | 2017-10-15 13:21 | DIAGNOSTIC IMAGING REPORT ---
SINGLE VIEW CHEST CLINICAL HISTORY: Atypical chest pain. FINDINGS: An AP, portable, upright chest radiograph is compared to study dated 09/28/2017 and correlated with chest CT dated 12/11/2015. The examination is degraded by portable technique, apical lordotic positioning, and patient rotation. The heart is enlarged and there is atherosclerotic calcification of the thoracic aorta. The pulmonary vasculature is noncongested. Chronic interstitial thickening is similar to previous. There is unchanged elevation of right hemidiaphragm with linear atelectasis/scarring in the right midlung. There is no airspace consolidation typical for pneumonia or large pleural effusion. No pneumothorax is seen. The skeletal structures are osteopenic. The bony thorax is grossly intact. Fusion hardware is noted in the upper lumbar spine. Calcific tendinopathy is present in the left shoulder. IMPRESSION: Cardiomegaly and chronic parenchymal changes as above. No acute cardiopulmonary abnormality is identified. Electronically signed by: Chinmay Norris M.D. 10/15/2017 1:19 PM Dictated Date/Time: 10/15/2017 1:18 PM
--- NOTE | 2017-10-15 13:23 | DIAGNOSTIC IMAGING REPORT ---
SINGLE VIEW PELVIS CLINICAL HISTORY: Fall. FINDINGS: An AP pelvic radiograph is obtained. No prior studies are available for comparison at the time of dictation. The skeletal structures are osteopenic. There is no radiographic evidence of fracture involving the hips or bony pelvis. Mild to moderate arthritic change and joint space narrowing is seen in the hips. Sclerotic change is present in the sacroiliac joints. Tiny enthesophytes arise from the anterior superior iliac spines. Advanced degenerative change and extensive fusion hardware is noted in the lumbar spine. Mild soft tissue edema is noted in the upper thighs. There is no bowel obstruction. Moderate colonic fecal retention is observed. IMPRESSION: Osteopenia and degenerative change as above. There is no radiographic evidence of fracture involving the hips or bony pelvis. Electronically signed by: Chinmay Norirs M.D. 10/15/2017 1:21 PM Dictated Date/Time: 10/15/2017 1:20 PM
--- NOTE | 2017-10-15 14:29 | DIAGNOSTIC IMAGING REPORT ---
CT ANGIOGRAM OF THE BRAIN COMBO; CT ANGIOGRAM OF THE NECK CLINICAL HISTORY: Vertigo. COMPARISON STUDY: CT of the brain an CT scan of the cervical spine dated 09/28/2017. Carotid artery ultrasound dated 11/14/2015. Chest CT dated 12/11/2015. TECHNIQUE: Unenhanced axial CT scan of the brain is performed. Subsequently, following the IV administration of 116 of Optiray 320, CT angiogram of the head and neck was performed from the aortic arch to the vertex. Images are reviewed in the axial, sagittal, and coronal planes. 3-D MIPS images are created and assessed. IV contrast was administered without complication. All measurements were calculated based on NASCET criteria. A dose lowering technique was utilized adhering to the principles of ALARA. The CT angiogram of the neck is modestly degraded by motion artifact. CT DOSE: 947.37 mGy.cm FINDINGS: Brain parenchyma: There are age-related involutional changes noting mild subcortical and periventricular microangiopathic disease. There is no hemorrhage, mass effect, or evidence of acute territorial ischemia by CT criteria. There is no evidence of enhancing mass lesion on the angiogram phase images. The ventricles, sulci, and cisterns are prominent secondary to involutional change. Martinez-white matter differentiation is preserved. No extra-axial fluid collection is seen. Thoracic aorta: Visualized portions of the thoracic aorta are normal in caliber. The aortic arch demonstrates standard 3-vessel anatomy. Right carotid arterial system: The right common carotid artery is widely patent, as are the right internal and external carotid arteries. Left carotid arterial system: The left common carotid artery is widely patent, as are the left internal and external carotid arteries. Mild atherosclerotic calcification is noted in the carotid bulb. Vertebral arteries: The vertebral arteries are widely patent and codominant. Subclavian arteries: Widely patent bilaterally. Intracranial vasculature: There is atherosclerotic calcification of the cavernous carotid arteries. There is origin of the right posterior cerebral artery. There is a large left posterior indicating artery. The internal carotid arteries are patent at the skull base, as are the anterior and middle cerebral arteries bilaterally. The basilar is somewhat diminutive. The vertebrobasilar system and posterior cerebral arteries are widely patent. The vertebral arteries are codominant. There is no aneurysm, high-grade stenosis, or focal vessel cut off seen throughout the intracranial circulation. Jugular veins: Widely patent bilaterally. Dural sinuses: Patent. Lung apices: Partially visualized upper lobe lung parenchyma appears clear. Soft tissues: The visualized pharyngeal soft tissues are normal in appearance noting angiographic phase technique. The oropharyngeal airway appears widely patent. The salivary glands are normal as imaged. The thyroid gland is enlarged and heterogeneous. Low-attenuation thyroid nodules measure up to 1.5 cm. No cervical lymphadenopathy is seen. Calcified tonsilliths are observed. Skeletal structures: The skeletal structures are osteopenic. The calvarium is normal in appearance. The cervical spine appears intact noting multilevel spondylosis. Soft tissues: There is a small left frontal scalp contusion. Orbits: The bony orbits are intact. Orbital contents are normal in appearance noting bilateral ocular lens implants. Sinuses and mastoids: There is trace fluid within the sphenoid sinuses. The remaining paranasal sinuses are clear. The mastoid air cells are well pneumatized. IMPRESSION: 1. There is no hemorrhage, mass effect, or evidence of acute territorial ischemia by CT criteria. 2. Unremarkable CT angiogram of the brain. 3. Unremarkable CT angiogram of the neck. 4. Enlarged and multinodular thyroid gland, similar in appearance to the [address] Electronically signed by: Chinmay Norris M.D. 10/15/2017 2:28 PM Dictated Date/Time: 10/15/2017 2:17 PM
[2017-10-15] MEDS ORDERED: MAGNESIUM SULFATE 1GM / D5W 1 GM BAG IV STA (14:40)
[2017-10-15] MEDS ORDERED: POT PHOSPHATE MONOBASIC W/ SOD TAB PO STA (14:40)
[2017-10-15] MEDS ORDERED: LORAZEPAM 0.5 MG TAB SL STA (15:33)
--- NOTE | 2017-10-15 16:28 | DIAGNOSTIC IMAGING REPORT ---
MRI OF THE BRAIN COMBO CLINICAL HISTORY: Vertigo. Recent fall. COMPARISON STUDY: CT of the brain dated 10/15/2017. TECHNIQUE: MRI of the brain was performed utilizing various T1 and T2-weighted sequences in the axial, sagittal, and coronal planes. Contrast-enhanced sequences were acquired following the administration of 6.5 cc of Gadavist. FINDINGS: Brain parenchyma: There are age-related involutional changes noting moderate patchy subcortical and periventricular microangiopathic disease. There is no hemorrhage or mass effect. There is no restricted diffusion to suggest acute ischemia. No enhancing mass lesion is identified on the postcontrast images. Martinez-white matter differentiation is preserved. No extra-axial fluid collection is seen. 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 The cerebellar tonsils are normal in configuration. Ventricles, sulci, and cisterns: Prominent secondary to involutional change. Pituitary and sella: Unremarkable. Intracranial vasculature: Normal flow voids are maintained at the skull base. Orbits: The bony orbits are grossly intact. Orbital contents are normal in appearance noting bilateral ocular lens implants. Sinuses and mastoids: There is trace fluid within the sphenoid sinuses. The remaining cranial sinuses and mastoid air cells are clear. Calvarium: Unremarkable. Cervical cord: Partially visualized cervical spinal cord is normal in morphology and signal intensity. IMPRESSION: 1. No acute intracranial abnormality. 2. 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 Electronically signed by: Chinmay Norris M.D. 10/15/2017 4:26 PM Dictated Date/Time: 10/15/2017 4:22 PM
[2017-10-15] MEDS ORDERED: MECL1TAB42 PO (17:15)
[2017-10-15 17:19] VITALS: BP 183/70; PULSE 68; O2SAT 96
== END 2017-10-15 17:50 | disposition home or self-care (01) ==
LOC: C.EDB 12:03
DX: E86.0 Dehydration (principal); R42 Dizziness and giddiness; E87.6 Hypokalemia; E83.42 Hypomagnesemia; E83.39 Other disorders of phosphorus metabolism; Z79.82 Long term (current) use of aspirin; I10 Essential (primary) hypertension; E78.5 Hyperlipidemia, unspecified; K21.9 Gastro-esophageal reflux disease without esophagitis; Z88.8 Allergy status to other drugs, medicaments and biological substances; Z88.2 Allergy status to sulfonamides